=== PATIENT | male | born 1945 | race Caucasian/White ===

== ENCOUNTER 2018-01-16 15:01 | Inpatient (IN) | payer MEDICARE, OTHER ==
[~2018-01-16] VITALS: Ht 177.8 cm; Wt 125.8 kg
[~2018-01-16 15:01] MED LIST: ACEBUTOLOL HCL200 MG PO; BACTRIM DS TAB1 EACH PO; CELEBREX100 MG PO; GLIMEPIRIDE4 MG PO; GLYBURIDE5 MG PO; HYDROCODON-ACE1 EA11 PO; LOSARTAN POTAS100 MG PO; LOVASTATIN40 MG PO; METFORMIN HCL500 M1 PO; PERCOCET 5-3251 EACH PO
[2018-01-16] MEDS ORDERED: BUPROPION HCL150 M2 PO (15:29)
[2018-01-16] MEDS ORDERED: PIOGLITAZONE HC15 MG PO (15:30)
[2018-01-16] MEDS ORDERED: ACEBUTOLOL HCL200 MG PO (15:33)
[2018-01-16] MEDS ORDERED: COL-RITE100 MG PO (15:36)
[2018-01-16] MEDS ORDERED: MUCINEX600 MG PO (15:36)
--- NOTE | 2018-01-16 18:24 | NUR ---
PT IV SITE INTACT, NO REDNESS OR SWELLING NOTED, PT DENIES PAIN AT SITE, FLUIDS INFUSING EASILY. PT DENIES PAIN, SOB, AND NAUSEA.
--- NOTE | 2018-01-16 18:45 | NUR ---
TOOK 1/2 OF DINNER.
--- NOTE | 2018-01-16 19:40 | NUR ---
FORTH BOLUS OF NS INFUSED. HOB ELEVATED.
--- NOTE | 2018-01-16 19:45 | NUR ---
SHIFT REPORT RECEIVED FROM JAMAICA GARCIA. PT HAS MULTIPLE VISITORS IN ROOM AT THIS TIME. 2L O2 VIA NC IN PLACE. JARA PATENT, TEA COLORED URINE. RADHA PLACED NEW 20G IV IN LEFT AC. CALL LIGHT WITHIN REACH, WILL CONTINUE TO MONITOR.
--- NOTE | 2018-01-16 19:48 | NUR ---
REPORT TO NEXT SHIFT.
--- NOTE | 2018-01-16 20:50 | NUR ---
ASSESSMENT COMPLETED. PT IS ALERT, FAMILY MEMBERS AT BEDSIDE. ORIENTED TO SELF, YEAR, CITY, DISORIENTED TO MONTH AND SURROUNDINGS. REPORTS 3/10 HEADACHE PAIN, 500MG PO TYLENOL GIVEN. LUNGS DIMINISHED, 2L O2 VIA NC IN PLACE. HR REGULAR. BOWEL TONE ACTIVE, DENIES NAUSEA. ABDOMEN IS OBESE, NONTENDER. SKIN INTACT, SCABS PRESENT TO FOREHEAD/SCALP. SKIN TO LEGS APPEARS TIGHT, NO PITTING PRESENT. CB, 8 UNITS SLIDING SCALE ADMINISTERED. IV'S PATENT, IVF INFUSING WNL. JARA IN PLACE, TEA-COLORED URING NOTED IN BAG. PT'S SON SHANEKA SPENDING NIGHT. REQUESTS DENIED AT THIS TIME, WILL CONTINUE TO MONITOR.
--- NOTE | 2018-01-16 21:30 | NUR ---
DR. JONAS CALLED TO CHECK IN ON PT'S, UPDATED HIM ON THE FOLLOWIN. PT'S FAMILY BROUGHT IN A POLST FORM (THOUGH PT'S NAME AND ARE NOT ON IT) THAT STATES PT IS TO BE FULL CODE, ORDERS RECEIVED TO CHANGE CODE STATUS ORDER. 2. PT AND PT'S SON REPORT THAT PT IS ALLERGIC TO BLOOD THINNERS BECAUSE THEY HAVE GIVEN HIM BLOOD CLOTS IN THE PAST, NEW ORDERS RECEIVED TO D/C LOVENOX (WHICH WAS HELD AT 2100) AND TO ORDER SCD'S. 3. PT'S URINE OUTPUT AT 2100 WAS ONLY 30ML. ORDERS RECEIVED TO INCREASE MAINTANENCE FLUID RATE TO 200ML/HR AND TO ADMINISTER 500ML LR BOLUS.
--- NOTE | 2018-01-16 23:43 | NUR ---
WENT IN TO MEASURE URINE OUTPUT AT 2300 AND DISCOVERED THAT THERE HAD BEEN 0, DESPITE THE 500ML BOLUS. CHECKED THE JARA AND FOUND THAT IT HAD BEEN LEAKING, A RATHER LARGE AMOUNT OF URINE NOTED ON GOWN AND CHUX PAD. ADDED AN EXTRA 5ML NS TO BALLOON, BUT STILL LEAKED. CLEANED MEATUS WITH IODINE, EMPTIED BALLOON AND INSERTED JARA FURTHER AND REINFLATED BALLOON WIH 15ML NS, BUT STILL LEAKED. JARA THEN D/C'D, LARGE BLOOD CLOT NOTED ON TIP OF JARA. NEW 18G JARA PLACED USING UROJECT AND MAINTAINING STERILE TECHNIQUE. URINE RETURNED APPEARED BLOOD TINGED WITH 3-4 PEA-SIZED CLOTS NOTED. JARA FLUSHED WITH 10ML NS. 100ML BLOOD-TINGED URINE EMPTIED (INCLUDING 10 ML FLUSH). NO LEAKING NOTED, WILL CONTINUE TO MONITOR.
--- NOTE | 2018-01-17 00:20 | NUR ---
ASSESSMENT COMPLETED, NO CHANGES FROM PREVIOUS ASSESSMENT. JARA FLUSHED WITH 10ML NS, REMAINS PATENT, NO MORE BLOOD CLOTS NOTED, URINE STILL APPEARS BLOOD-TINGED IN COLOR. IVF INFUSING WNL. WILL ALLOW FOR REST AND CONTINUE TO MONITOR. SON REMAINS AT BEDSIDE.
--- NOTE | 2018-01-17 01:29 | NUR ---
CHECKED ON PT, HR HAD INCREASED TO 97-100 AND RR INCREASED TO 35. PT FOUND TO BE SHAKY AND NAUSEATED. ZOFRAN ADMINISTERED. PT FOUND TO HAVE TEMP OF 103.0, ATTEMPTED TO GIVE PO TYLENOL, BUT PT WAS UNABLE TO FOLLOW DIRECTIONS TO SWALLOW. NIO ENTERED FOR TYLENOL SUPPOSITORY. PT FOUND TO HAVE HAD LARGE, SOFT BM. SHARDA-CARE, NEW DRAW SHEET, AND NEW CHUX PROVIDED AND TYLENOL SUPPOSITORY PLACED. PT TOLERATED WELL, THOUGH HE STILL APPEARS DROWSY. ICE PACKS PLACED IN GROIN AND UNDER AN ARMPIT. CALLED DR. JONAS WHO DID NOT ANSWER, WILL TRY AGAIN IN A FEW MINUTES.
--- NOTE | 2018-01-17 02:00 | NUR ---
ICE PACKS ROTATED FROM LEFT SIDE OF GROIN AND LEFT ARMPIT TO RIGHT SIDE.
--- NOTE | 2018-01-17 02:30 | NUR ---
RECHECKED TEMP: 98.3 TEMPORALLY. ICE PACKS REMOVED. WILL CONTINUE TO MONITOR.
--- NOTE | 2018-01-17 04:16 | NUR ---
ASSESSMENT COMPLETED. PT SLEEPING, WOKE BRIEFLY WHILE I WAS AUSCULTATING LUNGS. LUNGS REMAIN DIM THROUGHOUT, 3L O2 VIA NC IN PLACE. HR REGULAR. JARA PATENT, CONCENTRATED URINE. NO OTHER CHANGES FROM PREVIOUS ASSESSMENT. WILL CONTINUE TO MONITOR.
--- NOTE | 2018-01-17 06:21 | NUR ---
PT REMAINS AFEBRILE. JARA REMAINS PATENT. PT DENIES NEEDS, SON REMAINS AT BEDSIDE.
[2018-01-17] MEDS ORDERED: ACEBUTOLOL HCL200 MG PO (07:30)
[2018-01-17] MEDS ORDERED: METFORMIN HCL500 M2 PO (07:33)
--- NOTE | 2018-01-17 10:11 | NUR ---
PATIENT HELPED BACK TO BED WITH HIS SON AND THE TRANSFER DRIVER. PT TOLERATED SITTING UP IN CHAIR WELL FOR ABOUT 1 1/2 HRS. PT HAS BEEN MAKING 36-45 ML/HR OF URINE, AND OUR GOAL/HR IS 65 ML. PT GIVEN NORCO FOR 10/10 PAIN IN HIS SPINE. PT NOW RESTING WELL. PT HAS HAD SOME BLEEDING AROUND JARA CATHETER SITE WHICH HAS BEEN CLEANED X2 THIS AM. IVF CONTINUE AT 200 ML/HR. HEART RATE CURRENTLY IN THE 70s. PT ON ROOM AIR WITH SP02 96%. PT STATES, "I DON'T REMEMBER LAST NIGHT." PT REMINDED OF THE EVENTS AND REASON FOR HIS HOSPITILAZATION. CONTINUE TO MONITOR.
--- NOTE | 2018-01-17 11:40 | NUR ---
PATIENT HAS BEEN SLEEPING IN BED AND STATES HIS PAIN IS BETTER. PT DOZES OFF RATHER QUICKLY AT THIS TIME. LUNCH ORDERED FOR PATIENT. HEART RATE IN THE 60-70s, SINUS RHYTHM WITH A BBB. LAST BP 121/57. URINE OUTPUT SEEMS TO BE PICKING UP AT THIS TIME, BUT CONTINUING TO MONITOR Q HR.
--- NOTE | 2018-01-17 12:34 | NUR ---
PATIENT BOOSTED IN BED WITH CEILING LIFT AND GREEN SHIFT. PT NOW EATING HIS LUNCH. CBG 407 AND 12 UNITS OF INSULIN GIVEN. DR. JONAS NOTIFIED. PT TO BE SWITCHED TO A HIGH DOSE INSULIN SCALE. PATIENT NOW EATING LUNCH WITH HIS AND SON AT BEDSIDE.
--- NOTE | 2018-01-17 13:34 | NUR ---
PATIENT GIVEN PAIN PILL FOR 9/10 BACK PAIN. PT STATES HIS PAIN NEVER REALLY GETS BETTER. PT STATES HE TAKES 6 NORCOS PER DAY. SP02 CURRENTLY 99% ON ROOM AIR.
--- NOTE | 2018-01-17 15:12 | NUR ---
PATIENT HELPED UP TO CHAIR AGAIN AT THIS TIME AND GIVEN BED BATH. PT TOLERATED WELL. JARA CATHETER CARE PERFORMED AGAIN DUE TO BLOOD ACCUMULATION AROUND SITE. PT'S URINE OUTPUT REMAINS ADEQUATE NOW, WITH THE LAST HOUR BEING 85 ML. HEART RATE IN THE 60-70s. PT IS A STANDY BY ASSIST ONCE HE IS UP, BUT NEEDS HELP TO SIT UP AT EDGE OF BED. LAST BP 127/51. PT REMAINS ON ROOM AIR. CONTINUE TO MONITOR. STRAWBERRY GLUCERNA PROVIDED FOR PATIENT.
--- NOTE | 2018-01-17 16:17 | NUR ---
PATIENT HELPED BACK TO BED WITH HIS SON, SHANEKA. PT NOW RECEIVING IV ROCEPHIN AND DINNER ORDER PLACED. CONTINUE TO MONITOR.
--- NOTE | 2018-01-17 17:49 | NUR ---
PATIENT NOTED TO HAVE SOME BLOOD CLOTS PASSING THROUGH HIS JARA. OVERALL HIS URINE DOES SEEM TO BE COMMUNITY ADVOCATE COLOR THAN EARLIER TODAY, BUT WILL CONTINUE TO MONITOR CLOSELY. PT MAY NEED JARA FLUSHED IF URINE DECREASES. PT HAS FAMILY IN ROOM VISITING.
--- NOTE | 2018-01-17 19:30 | NUR ---
SHIFT REPORT RECEIVED FROM JAMAICA SHERMAN. PT IS CURRENTLY RESTING IN BED. SON HAS BEEN AT BEDSIDE, IS HEADING HOME FOR ABOUT AN HOUR AND WILL BE BACK. IVF INFUSING WNL. ESTEFANI PATENT. PT ON RA.
--- NOTE | 2018-01-17 21:00 | NUR ---
ASSESSMENT COMPLETED. PT APPEARS DROWSY, IS HAVING DIFFICULTY ANSWERING QUESTIONS. FOUND TO HAVE TEMP OF 101.0. PT REPORTS BACK PAIN, 1 TAB NORCO GIVEN AT THIS TIME. ICE PACKS PLACED IN RIGHT GROIN AND UNDER RIGHT ARMPIT, WILL CHECK TEMP IN AN HOUR AND DECIDE IF HE REQUIRES ADDITIONAL TYLENOL FOR TEMP. DISORIENTED TO ALL AT THIS TIME. LUNGS CLEAR, RA. HR REGULAR. BOWEL TONES ACTIVE, ABDOMEN OBESE, SOFT, NON-TENDER. IV PATENT, IVF INFUSING WNL. SKIN TO BLE APPEARS TIGHT, MORE SO IN RLE, SCD'S IN PLACE. JARA PATENT, UO QS THIS HOUR, FEW SMALL BLOOD CLOTS NOTED IN BAG. CB, 9 UNITS SLIDING SCALE AND 10 UNITS LEVEMIR ADMINSTERED. SON BACK AT BEDSIDE. WILL CONTINUE TO MONITOR.
--- NOTE | 2018-01-17 22:00 | NUR ---
RECHECKED TEMP: 99.9, 500MG PO TYLENOL ADMINISTERED. ICE PACKS ROTATED SIDES. IV PATENT, INFUSING WNL. ESTEFANI PATENT, UP QS THIS HOUR. WILL CONTINUE TO MONITOR.
--- NOTE | 2018-01-17 23:00 | NUR ---
TEMP REMAINS AT 99.9 ICE PACKS ROTATED AND COOL CLOTH PLACED ON FOREHEAD. UO QS AT THIS TIME, BLOOD CLOT NOTED IN TUBING. WILL CONTINUE TO MONITOR.
--- NOTE | 2018-01-18 00:14 | NUR ---
DR. BARBOSA HAD CALLED TO CHECK IN ON PT'S, INFORMED HER THAT UO THIS LAST HOUR WAS ONLY 35, SHE STATES THIS IS ACCEPTABLE BASED ON HIS CREATININE LEVEL. NO NEW ORDERS RECEIVED AT THIS TIME. TEMP: 97.7.
--- NOTE | 2018-01-18 00:22 | NUR ---
PT SLEEPING, NO APPARENT DISTRESS. RESPIRATIONS EVEN AND UNLABORED, RR:19, SPO2: 95% ON 2L O2 VIA NC. HR: 72. JARA PATENT, CLOTS NOTED IN TUBING. WILL ALLOW FOR REST AND CONTINUE TO MONITOR.
--- NOTE | 2018-01-18 02:00 | NUR ---
PT APPEARS TO BE SLEEPING AT THIS TIME, NO APPARENT DISTRESS. RR:23, SPO2:96% ON 2L O2 VIA NC. HR:73. RESPIRATIONS ARE EVEN AND UNLABORED. IVF INFUSING WNL. JARA REMAINS PATENT, NO CLOTS NOTED IN TUBING AT THIS TIME. REMAINS AFEBRILE. WILL ALLOW FOR REST AND CONTINUE TO MONITOR.
--- NOTE | 2018-01-18 04:06 | NUR ---
PT SLEEPING, NO APPARENT DISTRESS. LUNGS REMAIN CLEAR, 2L O2 VIA NC. RESPIRATIONS EVEN AND UNLABORED, RR:23, SPO2:98%. HR:77. JARA PATENT, COUPLE BLOOD CLOTS NOTED IN TUBING. IV PATENT, INFUSING WNL. WILL ALLOW FOR REST AND CONTINUE TO MONITOR.
--- NOTE | 2018-01-18 06:50 | NUR ---
PT'S SON STATES THAT PT REPORTED FEELING HOT. ORAL TEMP: 98.5 AT THIS TIME. COOL CLOTH PLACED ON FOREHEAD, WILL CONTINUE TO MONITOR.
--- NOTE | 2018-01-18 08:08 | NUR ---
PATIENT HELPED UP TO CHAIR BY HIS SON, SHANEKA, WHO IS VERY ATTENTIVE TO PATIENT. BREAKFAST ORDERED BY HIS SON FOR PATIENT WELL. PT GIVEN 10 UNITS LEVEMIR AND 5 UNITS NOVOLOG FOR A BG 200 THIS AM. TEMP THIS AM 99.4. DR. BARBOSA IN TO SEE PATIENT. HEART RATE REMAINS IN THE 70-80s. CRACKLES AUSCULTATED IN BOTH LOWER LUNG LOBES POSTERIORLY. PT GIVEN IS AND TAUGHT HOW TO USE IT AND ENCOURAGED TO TAKE DEEP BREATHS. IVF TURNED DOWN TO 100 ML/HR PER DR. BARBOSA ORDER. URINE OUTPUT AT 0800 WAS 110 ML, DARK COLORED URINE. PT NOW EATING BREAKFAST. CONTINUE TO MONITOR.
--- NOTE | 2018-01-18 08:44 | NUR ---
PATIENT'S SON SHANEKA WAS HELPING PATIENT BACK TO BED BECAUSE PATIENT STATED HE COULD NOT WAIT AND THE CALL LIGHT WAS NOT USED. THIS RN THEN HEARD THE PATIENT'S SON CALLING FOR HIS RN BY NAME, AND WENT IN TO SEE PATIENT. PT'S SON HAD HIM ALMOST ON THE BED BUT STATED, "HE'S ABOUT TO FALL." HELPED PATIENT BACK INTO BED WITHOUT INCIDENT. PATIENT HOWEVER DID NOT APPEAR TO BE DOING WELL, AND SOME MOTTLING WAS NOTED TO HIS ARMS AND HIS FACE AND NECK. PATIENT'S BLOOD PRESSURE ONCE IN BED 159/68. HEART RATE REMAINED IN THE 70s DURING THIS WHOLE TIME. SP02 IS 96% ON ROOM AIR, BUT 02 ADDED BACK ON PATIENT AT 2 L. RR 24. TEMPERATURE 98.4 ORAL. PT STARTED TO LOOK BETTER AND HAD BETTER SKIN COLOR IN HIS FACE AND NECK AFTER HE WAS LYING DOWN. CONTINUE TO MONITOR.
--- NOTE | 2018-01-18 09:28 | NUR ---
PATIENT SLEEPING AT THIS TIME. PT'S SON REMAINS IN ROOM. RR EVEN AND UNLABORED. CONTINUE TO MONITOR.
--- NOTE | 2018-01-18 11:31 | NUR ---
PATIENT CONTINUES TO REST AT THIS TIME AND IS OVERALL FAIRLY DROWSY. HEART RATE REMAINS IN THE 60-70s. SP02 IS 97% ON 2 L NC. PT'S IN ROOM WITH HIM. URINE OUTPUT APPEARS DARKER - CONTINUE TO MONITOR. HOLDING OFF ON TRANSFERRING PATIENT TO MED/SURG AT THIS TIME UNTIL LATER THIS AFTERNOON. CONTINUE TO MONITOR.
--- NOTE | 2018-01-18 11:41 | NUR ---
PATIENT DENIES WANTING ANY FOOD AT THIS TIME FOR LUNCH. PT IS VERY TIRED OVERALL. CONTINUE TO MONITOR URINE OUTPUT CLOSELY.
--- NOTE | 2018-01-18 12:27 | NUR ---
PATIENT WILL AWAKEN WITH PROMPTING, BUT OVERALL IS MUCH MORE DROWSY TODAY COMPARED TO YESTERDAY. PT IS ALSO MORE DISORIENTED. PT CAN STATE THAT HE IS IN A HOSPITAL, BUT UNAWARE OF THE REASON FOR BEING IN ONE, THE MONTH, OR THE YEAR. PT RE-ORIENTED. PT'S REMAINS IN ROOM. END TITAL C02 PLACED ON PATIENT TO MONITOR THIS AT THIS TIME AND CURRENTLY ETC02 IS 48-49. PT DOES NOT APPEAR TO BE WORKING HARD TO BREATH, AND BREATHS ARE ADEQUATE. PT TURNED TO RIGHT SIDE. PT DENYING PAIN AT THIS TIME, WHICH NORMALLY H E REQUIRES 6 NORCO TABS PER DAY. PT GIVEN 5 UNITS OF NOVOLOG FOR A CBG OF 221. PT STILL STATES HE IS NOT HUNGRY. RR 18-19. CONTINUE TO MONITOR.
--- NOTE | 2018-01-18 12:37 | NUR ---
DR. BARBOSA UPDATED ON PT AT THIS TIME. OXYGEN TURNED OFF AND WILL BE MONITORED. CURRENTLY PATIENT IS 97-98% ON ROOM AIR. CONTINUE TO MONITOR END TITAL AND RR PATTERN, DEPTH AND QUALITY.
--- NOTE | 2018-01-18 13:29 | NUR ---
DR. BARBOSA UPDATED AGAIN ON PATIENT. ORDER REC'D TO DRAW ABG. RT NOTIFIED AND ABG DRAWN AT 1325. PT TOLERATED WELL. PT NOTED TO DESATURATE TO THE MID 80s ON ROOM AIR. PT STILL FAIRLY DROWSY OVERALL. PT'S SON AND IN ROOM. CONTINUE TO MONITOR CLOSELY. WARM BLANKET PROVIDED. URINE OUTPUT STARTING TO APPEAR SOMEWHAT SENIOR MARKETING COORDINATOR IN COLOR.
--- NOTE | 2018-01-18 13:53 | NUR ---
ENTERED PT RM, YENNIFER AND SON SHANEKA IN RM. PT OPENED HIS EYES WHEN I SPOKE TO HIM, ANSWERED MY QUESTIONS. PT STATED THAT HE FEELS WORSE TODAY THAN YESTERDAY. HE MENTIONED HIS PAIN AT 10, I TOLD JAMAICA SHERMAN RE HIS PAIN RATE. PT THEN DRIFTED OFF. HAD GOOD DISCUSSION WITH FAMILY, THANKED ME FOR COMING BY. I EXTENDED A BLESSING, WILL FOLLOW NEEDED
--- NOTE | 2018-01-18 14:10 | NUR ---
ABG RESULTS SHOWN TO DR. BARBOSA. ORDER REC'D TO PLACE PATIENT ON CPAP/BIPAP PER RT. FAMILY IN ROOM AND UPDATED. CONTINUE TO MONITOR.
--- NOTE | 2018-01-18 15:00 | NUR ---
PATIENT NOW ON CPAP OF 14 ON ROOM AIR. SP02 CURRENTLY IS 94%. PT GIVEN A BED BATH AND WAS A LITTLE MORE ALERT AND INTERACTIVE WITH BATH, BUT OVERALL STILL SOMNOLENT. PATIENT'S BUTTOCKS AND COCCYX AREA RED, BUT ALL BLANCHABLE. PT TURNED TO LEFT SIDE, PATIENT TENDS TO LEAN TOWARDS THE RIGHT MORE. PT NOTED TO HAVE REDENNED AREA IN GROIN AREA WELL. SCROTUM AND PENIS EDEMATOUS. CONTINUE TO MONITOR CLOSELY. PT TOLERATING CPAP THUS FAR.
--- NOTE | 2018-01-18 16:27 | NUR ---
PATIENT TAKEN OFF BIPAP AT THIS TIME. PT'S GRANDSON IN ROOM AND PATIENT MORE INTERACTIVE WITH HIM AT THIS TIME. PT ASKED IF HE KNEW IT WAS IN THE AFTERNOON, AND HE RESPONDED, "NO, I HAD NO IDEA." PATIENT THEN ASKED, "DOES TODAY SEEM LIKE A BLUR TO YOU?" TO WHICH HE STATES, "YEAH IT KIND OF DOES." CONTINUE TO MONITOR.
--- NOTE | 2018-01-18 16:48 | NUR ---
PATIENT DENIES BEING HUNGRY AT THIS TIME, BUT AGREES TO DRINK A STRAWBERRY GLUCERNA. PT MORE ALERT THAN PREVIOUSLY TODAY.
--- NOTE | 2018-01-18 18:27 | NUR ---
PATIENT PLACED BACK ON CPAP AT THIS TIME AFTER ASSESSING PATIENT. PT CONTINUES TO HAVE CRACKLES IN BASES OF LUNGS. PT DOES NOT TAKE DEEP BREATHS AND EVEN WITH IS, CAN ONLY PRODUCE 250 ML ON THE IS. PT HESITATE TO GO BACK ON CPAP, BUT EXPLAINED TO PATIENT WHY THIS IS IMPORTANT FOR HIM. PT CONTINUES TO PASS SOME BLOOD CLOT LIKE MATERIAL IN JARA TUBING. PT'S REMAINS IN ROOM.
--- NOTE | 2018-01-18 20:13 | NUR ---
OFF CPAP, AT SOME SOUP AND A LITTLE GLUCERNA. WILL AWAKEN AND FOLLOW SOME COMMANDS BUT FALLS BACK TO SLEEP QUICKLY. WILL LEAVE CPAP FOR FOR NOW BUT WILL REPLACE LATER.
--- NOTE | 2018-01-18 20:52 | NUR ---
GIVEN HS MEDS. GIVEN 500MG TYLENOL FOR TEMP. PLACED BACK ON CPAP.
--- NOTE | 2018-01-18 21:36 | NUR ---
PT TOOK CPAP OFF, FELT LIKE HE COULDN'T BREATH. HAD NOTED EARLIER THAT SATS HAD Oct BFORE CPAP PUT BACK ON. [address] IS DIAPHORETIC. T 99.2. SON IN ROOM. FEW CLOTS NOTED IN JARA TUBING.
--- NOTE | 2018-01-19 00:15 | NUR ---
HAD BEEN SLEEPING. AWAKENS TO VOICE AND STATES IS TIRED. DOES NOT STAY AWAKE. IS DIAPHORETIC AND AFREBRILE NOW. CPAP BACK ON.
--- NOTE | 2018-01-19 00:33 | NUR ---
PT REPOSITIONED USING SLING, HIPS FLOATED. DURING THIS PT SLEPT THROUGH MUCH BUT DID AWAKEN TO ASK WHAT HE WAS DOING HERE, THEN BACK TO SLEEP. CPAP IN PLACE.
--- NOTE | 2018-01-19 02:34 | NUR ---
PT TOOK CPAP OFF AT 0130. . STATES FEELS LIKE THE MASK HAD PUT PRESSURE ON MOUTH WHEN DENTURES WERE IN AND FEELS LIKE HIS GUMS ARE BRUISED. HAD REMOVED DENTURES ABOUT 0030. HAS BEEN SLEEPING ON RA. SATS 90-95%.
--- NOTE | 2018-01-19 04:27 | NUR ---
SLEEPING OFF AND ON. DID NOTE SLEEP APNEA WHEN IN DEEP SLEEP. IS AWAKE, MORE ALERT THAN BEFORE, MORE INTERACTIVE. DENIES PAIN, THIRST OR HUNGER.
--- NOTE | 2018-01-19 06:44 | NUR ---
MORE AWAKE THIS AM. AFFECT STILL FLAT.
--- NOTE | 2018-01-19 08:50 | NUR ---
PT IV SITE IN LEFT HAND DC'D PER ROUTINE IV ROTATION. PT C/O 07/02 NECK/BACK PAIN, 1 TAB NORCO GIVEN. PT AND SON AT THE BED SIDE. PT LOC HAS INCREASED SINCE THIS PRIOR DAY, BACK TO BASELINE. VITALS STABLE. PT ABLE TO EAT 75% HIS BREAKFAST. IV SITE IN LEFT AC INTACT, FLUIDS INFUSING EASILY, NO REDNESS OR SWELLING NOTED.
--- NOTE | 2018-01-19 12:30 | NUR ---
IV SITE INTACT, NO REDNESS OR SWELLING NOTED, IV FLUIDS INFUSING EASILY, PT DENEIS PAIN AT THE SITE. PT DENIES NAUSEA AND SOB. C/O 9/10 BACK/NECK PAIN 1 TAB PO NORCO GIVEN. PT DENIES DESIRE FOR LUNCH. LEFT BEDSIDE TO GO TO WORK, SON BACK AT BEDSIDE. PT VITALS WNL AT THIS TIME.
--- NOTE | 2018-01-19 13:18 | NUR ---
PT RESTING IN BED, AWARE OF MY PRESENCE AND WELCOMED ME IN. HE REACHED OUT AND SHOOK MY HAND. FEELING BETTER TODAY, PAIN IS CHRONIC-SOMETHING HE HAS JUST LEARNED TO LIVE WITH. PT REQUESTED PRAYER, WILL FOLLOW NEEDED. HIS DID COME IN JUST I WAS LEAVING TALKING ON PHONE
--- NOTE | 2018-01-19 14:02 | NUR ---
PT ALERT AND ORIENTED X4, FINISHED 100% OF LUNCH, USING INCENTIVE SPIROMETER.
--- NOTE | 2018-01-19 15:45 | NUR ---
PT TRANSFERED TO MED/SURG ROOM 113. ALL PT BELONGINGS WENT WITH PT. FULL REPORT GIVEN TO JAMAICA BOLES.
--- NOTE | 2018-01-19 15:53 | NUR ---
PT TRANSFERED FROM CCU TO ROOM 113 VIA BED, ACCOMPANIED BY JAMAICA RADER AND THIS RN. REPORT RECIEVED FROM JAMAICA RADER PRIOR TO TRANSFER.
--- NOTE | 2018-01-19 16:26 | NUR ---
PT UP TO RECLINER WITH STAND PIVOT TRANSFER USING FWW, GAIT BELT, AND 3 PERSON ASSIST. PT TOLERATED WELL.
--- NOTE | 2018-01-19 16:48 | NUR ---
PT SITTING UP IN RECLINER. GAVE NOVOLOG 5 UNITS SQ PER SLIDING SCALE INSULIN ORDERS. PT DENIED NEEDS. PERSONAL SUPPLIES AND CALL BUTTON IN REACH.
--- NOTE | 2018-01-19 17:22 | NUR ---
PT TRANSFERED FROM CCU TO ROOM 113 AT APROXIMATELY 1545. PT IN BED, TRANSFERED TO RECLINER WITH 3 PERSON ASSIST WITH FWW, PT TOLERATED WELL. PT HAS GENERALIZED EDEMA TO EXTREMITITIES X 4, 1 + EDEMA TO SACRUM, SCROTUM. JARA CATHETER INTACT, QUANTITY SUFFICIENT URINE OUTPUT, YELLOW WITH OCCASIONAL CLOTS NOTED. PT SHORT OF BREATH WITH EXERTION. ON RA, LUNGS DIMINISHED. PT HAS CHEST PORT, REPORTS THAT IT WAS PLACED MORE THAN 20 YEARS AGO, THIS IS NOT ACCESSED. PT HAS LR INFUSING AT 100 CC/HR. PT IS A DAILY WEIGHT. ON RA, LUNGS DIMINISHED. PER CCU RN REPORT, PT WORE 2L O2 VIA NC AT [facility], OR CPAP. PT C/O CHRONIC BACK PAIN, RECIEVED NORCO 7.5/325 MG 1 TAB PO PRN.
--- NOTE | 2018-01-19 18:54 | NUR ---
PT IN BED, HOB ELEVATED. RATED PAIN TO BACK 6-7/10. PT REPORTS THAT THE LOWEST HIS PAIN GETS, EVER, IS 6/10. DENIED NEEDS. SON AT BEDSIDE. PERSONAL SUPPLIES AND CALL BUTTON IN REACH.
--- NOTE | 2018-01-19 20:03 | NUR ---
RECEIVED REPORT FROM DAY SHIFT RN. PATIENT IS RESTING IN BED WITH FAMILY AT THE BEDSIDE. NO NEEDS NOTED. CALL LIGHT IN REACH.
--- NOTE | 2018-01-19 21:10 | NUR ---
PATIENT ASSESMENT COMPLETED. PATIENTS EVENING MEDICATIONS GIVEN PER ORDER. PATIENT RATES PAIN AT A 10/10. PATIENT STATED "MY PAIN IS ALWAYS 10/10" PATIENT GIVEN PRN PAIN MEDICATION PER ORDER. PATIENT REPOSITIONED IN BED. VITALS TAKEN AND RECORDED. PATIENTS JARA EMPTIED NO CLOTS NOTED. PATIENT DENIES ANY SOB. PATIENT IS REFUSING TO WEAR CPAP. PATIENT STATED "I DONT WEAR IT AT HOME" PATIENT EDUCATED ON THE BENEFIT OF WEARING THE CPAP. PATIENT CONTINUES TO REFUSE. NO FURTHER NEEDS NOTED. CALL LIGHT IN REACH. SON IN THE ROOM AND IS STAYING THE NIGHT. LINEN PROVIDED FOR SON.
--- NOTE | 2018-01-19 23:42 | NUR ---
PATIENT IS RESTING IN BED WITH EYES CLOSED. BREATHING IS EVEN AND UNLABORED, RR 17. CALL LIGHT IN REACH. SON IS ASLEEP ON THE COUCH.
--- NOTE | 2018-01-20 01:02 | NUR ---
PATIENT IS RESTING IN BED WITH EYESCLOSED, RR 17. CALL LIGHT IN REACH.
--- NOTE | 2018-01-20 02:22 | NUR ---
PATIENT REPOSITIONED IN BED. PATIENT DENIES ANY NEEDS AT THIS TIME. CALL LIGHT IN REACH. SON ASLEEP ON COUCH.
--- NOTE | 2018-01-20 04:09 | NUR ---
PATIENT IS RESTING IN BED WITH EYES CLOSED. BREATHING IS EVEN AND UNLABORED, RR 18. CALL LIGHT IN REACH. SON ASLEEP ON THE COUCH.
--- NOTE | 2018-01-20 05:12 | NUR ---
PATIENT RESTED WELL THROUGHOUT THE SHIFT. PATIENT IS ON A ADA DIET, NO NAUSEA NOTED. PATIENT HAS CHRONIC PAIN FOR WHICH HE RECEIVED PRN PAIN MEDICATION. PATIENT IS A 2-3P PIVOT TO BSC OR CHAIR W/FWW. PATEINT HAS A JARA IN PLACE, OUPUT IS QS, URINE IS A DARKER YELLOW IN PLACE, AND NO CLOTS NOTED ON THIS SHIFT. PATIENT REFUSED CPAP OR OXYGEN LAST NIGHT. PATIENT REPOSITIONED NEEDED. PATIENT SON REMAINED IN ROOM. PATEINT IS AAOX3, AND USES CALL LIGHT APPROPRIATELY.
--- NOTE | 2018-01-20 06:06 | NUR ---
PATIENTS MORNING MEDICATIONS GIVEN PER ORDER. PATIENT GIVEN PRN PAIN MEDICAITON FOR 10/10 PAIN IN HIS BACK. PATIENT STATED "THIS IS ALWAYS A 10/10" PATIENT ASSISTED A 2PA W/FWW. PATIENT DID VERY WELL WITH ACITIVTY. PATIENT IS NOW IN RECLINER RESTING. PATIENT DENIES ANY FURTHER NEEDS. CALL LIGHT IN REACH AND SON AT THE BEDSIDE.
--- NOTE | 2018-01-20 07:25 | NUR ---
PT SITTING UP IN RECLINER, SON AT SIDE. RECIEVED BEDSIDE REPORT FROM JAMAICA LATHAM. PERSONAL SUPPLIES AND CALL BUTTON IN REACH.
--- NOTE | 2018-01-20 07:52 | NUR ---
PT SITTING UP IN RECLINER. BG CHECKED, 194. PERSONAL SUPPLIES IN REACH, CALL BUTTON IN REACH.
--- NOTE | 2018-01-20 08:15 | NUR ---
DR. BARBOSA IN TO SEE PT. DISCUSSED PLAN OF CARE. PT STATED THAT HE FEELS READY TO GO HOME, DR. BARBOSA DISCUSSED NEED FOR FURTHER IV TREATMENT AT THIS TIME, AND NEED TO REMAIN IN HOSPITAL FOR LONGER FOR PHYSICAL THERAPY POTENTIALLY.
--- NOTE | 2018-01-20 08:29 | NUR ---
JARA CATHETER REMOVED, PT TOLERATED WELL. HAD 625 CC URINE IN CATHETER BAG.
--- NOTE | 2018-01-20 09:39 | NUR ---
PT TRANSFERED FROM RECLINER TO BED WITH 3 PERSON ASSIST. IS NOW SITTING UP IN BED. PERSONAL SUPPLIES IN REACH, IS CALL LIGHT.
--- NOTE | 2018-01-20 09:43 | NUR ---
3 PERSON ASSIST FROM CHAIR TO BED. LISA LEFT SHARDA AREA IRRITATED. BEDBATH BY THIS [employer] MANAGER AND RN. CLEAN GOWN AND SOCKS. FRESH ICE WATER CALL LIGHT IN REACH. NO OTHER NEEDS.
--- NOTE | 2018-01-20 11:09 | NUR ---
2 person assist in gown and brief change. Bed became off track in the process, sherrie Cordero was able to fix bed. rn in room for b/s check. call light in reach.
--- NOTE | 2018-01-20 11:14 | NUR ---
PT IN BED, HOB ELEVATED. DENIED NEEDS. PERSONAL SUPPLIES AND CALL BUTTON IN REACH. BG CHECKED, 218.
--- NOTE | 2018-01-20 13:17 | NUR ---
PT RESTING IN BED, ALERT AND ORIENTED. YENNIFER PRESENT. PT SEEMS TO HAVE ACCEPTING ATTITUDE OF HIS CONDITION, TRYING TO HAVE SENSE OF HUMOR THROUGH IT ALL. DID MENTION THAT HE FELT A NEED TO REST, TURNED OVERHEAD LIGHT OFF. WILL FOLLOW NEEDED
[2018-01-20] MEDS ORDERED: KEFLEX500 MG PO (13:33)
--- NOTE | 2018-01-20 13:50 | NUR ---
PT IN BED, SON AT BEDSIDE. PT DENIED NEEDS. STATED THAT HE IS DISCHARGING TO HOME, PER DR. BARBOSA.
--- NOTE | 2018-01-20 14:28 | NUR ---
2 PERSON ASSIST WITH RN IN CHANGING CLOTHES FROM GOWN TO PERSONAL CLOTHES. DISCHARGE VITALS DONE, WAITING ON VISIT FROM PHARMACY. SON IN ROOM, VERY ATTENTIVE. CALL LIGHT IN REACH.
--- NOTE | 2018-01-20 14:58 | NUR ---
PT'S DISCHARGE VS WERE OBTAINED BY NEELIMA LOPEZ. BP WAS 187/72. PT HAD EXERTED HIMSELF, GETTING ATTENDS CHANGED, CHANGING INTO HIS STREET CLOTHING, AND TRANSFERING TO / PRIOR TO VS BEING OBTAINED. NOTIFIED DR. BARBOSA OF ABOVE NOTED AT 1455.
== END 2018-01-20 14:40 | disposition home or self-care (01) | DRG 871 ==
LOC: ED 15:01 → CCU 17:14 → MS 01-19 15:35
PROVIDERS: ADMIT Internal Medicine
DX: A41.89 Other specified sepsis (principal); G93.41 Metabolic encephalopathy; N39.0 Urinary tract infection, site not specified; B96.1 Klebsiella pneumoniae [K. pneumoniae] as the cause of diseases classified elsewhere; I25.10 Atherosclerotic heart disease of native coronary artery without angina pectoris; I11.0 Hypertensive heart disease with heart failure; I50.9 Heart failure, unspecified; D75.1 Secondary polycythemia; E11.65 Type 2 diabetes mellitus with hyperglycemia; Z79.4 Long term (current) use of insulin; F39 Unspecified mood [affective] disorder; Z95.1 Presence of aortocoronary bypass graft; E78.5 Hyperlipidemia, unspecified; G47.33 Obstructive sleep apnea (adult) (pediatric); Z87.891 Personal history of nicotine dependence
CPT/HCPCS: 36415; 36600; 71045; 80053; 81001; 82803; 83036; 83605; 83735; 84484; 85025; 87040; 87077; 87088; 87186; 87502; 94660; 97162; 97530; J0456; J0692; J0696; J2405; J3475; J7030; J7050; J7120

== ENCOUNTER 2018-03-17 19:07 | Emergency (ER) | payer MEDICARE, OTHER ==
[~2018-03-17] VITALS: Ht 177.8 cm; Wt 125.8 kg
[~2018-03-17 19:07] MED LIST changes: +BUPROPION HCL150 M2 PO; +COL-RITE100 MG PO; +KEFLEX500 MG PO; +METFORMIN HCL500 M2 PO; +MUCINEX600 MG PO; +PIOGLITAZONE HC15 MG PO
[2018-03-17] MEDS ORDERED: CEPHALEXIN500 MG PO (22:20)
--- NOTE | 2018-03-18 07:16 | EKG ---
[facility] [address] [facility] [place] [address] Signed Normal sinus rhythm Right bundle branch block Abnormal ECG No previous ECGs available Confirmed by ATIF BARBOSA MD ([id number]) on 03/18/2018 7:16:03 AM Electronically Signed By: ATIF BARBOSA MD 03/18/18 0716 PATIENT NAME: NOVA HERNANDEZ Electrocardiogram DATE OF : 43 PHYSICIAN: ATIF BARBOSA MD REPORT #: [id number] REPORT IS CONFIDENTIAL AND NOT TO BE RELEASED WITHOUT AUTHORIZATION
== END 2018-03-17 22:42 | disposition home or self-care (01) ==
LOC: ED 19:07
DX: N39.0 Urinary tract infection, site not specified (principal); I11.0 Hypertensive heart disease with heart failure; I50.9 Heart failure, unspecified; E11.9 Type 2 diabetes mellitus without complications; Z87.891 Personal history of nicotine dependence; Z91.048 Other nonmedicinal substance allergy status; Z79.899 Other long term (current) drug therapy; Z79.84 Long term (current) use of oral hypoglycemic drugs
CPT/HCPCS: 36415; 71045; 80053; 81001; 83605; 85025; 87040; 87077; 87088; 87186; 93005; 93010; 96361; 96374; 99283; J0692; J7030

== ENCOUNTER 2018-03-19 10:11 | Emergency (ER) | payer MEDICARE, OTHER ==
[~2018-03-19] VITALS: Ht 177.8 cm; Wt 125.6 kg
[~2018-03-19 10:11] MED LIST changes: +CEPHALEXIN500 MG PO
[2018-03-19] MEDS ORDERED: LEVAQUIN500 MG PO (11:51)
== END 2018-03-19 12:29 | disposition home or self-care (01) ==
LOC: ED 10:11
DX: N39.0 Urinary tract infection, site not specified (principal); E11.65 Type 2 diabetes mellitus with hyperglycemia; I11.0 Hypertensive heart disease with heart failure; I50.9 Heart failure, unspecified; Z87.891 Personal history of nicotine dependence; Z88.8 Allergy status to other drugs, medicaments and biological substances
CPT/HCPCS: 71046; 80053; 81001; 83605; 85025; 87088; 96361; 96374; 99283; J7030

== ENCOUNTER 2020-07-02 12:00 | Emergency (ER) | payer MEDICARE, OTHER ==
[~2020-07-02] VITALS: Ht 177.8 cm; Wt 125.6 kg
[~2020-07-02 12:00] MED LIST changes: +ACTOS45 MG PO; -BUPROPION HCL150 M2 PO; +BUPROPION XL150 MG PO; +LEVAQUIN500 MG PO; -PIOGLITAZONE HC15 MG PO
[2020-07-02] MEDS ORDERED: PRAVASTATIN SOD40 MG PO (12:08)
[2020-07-02] MEDS ORDERED: FLOMAX0.4 MG PO (12:08)
[2020-07-02] MEDS ORDERED: ONDANSETRON ODT8 MG PO (15:42)
== END 2020-07-02 16:02 | disposition home or self-care (01) ==
LOC: ED 12:00
DX: K29.00 Acute gastritis without bleeding (principal); E11.9 Type 2 diabetes mellitus without complications; I11.0 Hypertensive heart disease with heart failure; I50.9 Heart failure, unspecified; Z87.891 Personal history of nicotine dependence
CPT/HCPCS: 74177; 80053; 81001; 83690; 83735; 85025; 96374; 99284-25; J2405; J7030; Q9967

== ENCOUNTER 2020-07-05 10:14 | Inpatient (IN) | payer MEDICARE, OTHER ==
[~2020-07-05] VITALS: Ht 177.8 cm; Wt 136.1 kg
[~2020-07-05 10:14] MED LIST changes: +FLOMAX0.4 MG PO; +ONDANSETRON ODT8 MG PO; +PRAVASTATIN SOD40 MG PO
--- OUTSIDE RECORDS SUMMARY | 2020-07-05 10:18 | XMS ---
PreManage Notification: NOVA HERNANDEZ Security Hospitality Workers Events No recent Security Events currently on file CRITERIA MET - [facility] - 2 Visits in 30 Days CARE PROVIDERS There are no care providers on record at this time. Eduardo has no Care Guidelines for this patient. Care History Medical/Surgical 03/23/2018 [facility] - CHW contacted patient who stated he has family support system 4 children. - CHW is concerned that the patient is at home with his who has stage 4 cancer. Patient stated his kids are very much involved with his care and his older daughter Андрей De Leon is a good contact if seen in the ED. Patient could not remember the contact number for his daughter. - CHW will be scheduling a home visit with this patient. Bennie VISIT COUNT (12 MO.) 2 [facility] TOTAL 2 NOTE: Visits indicate total known visits. ED/C VISIT TRACKING (12 MO.) 07/05/2020 10:15 N[facility] Rodriguez [place] TYPE: Emergency COMPLAINT: - ABDOMINAL PAIN 07/02/2020 12:00 NID[facility] Rodriguez [place] TYPE: Emergency COMPLAINT: - ABD PAIN DIAGNOSES: - Heart failure, unspecified - Acute gastritis without bleeding - Nausea with vomiting, unspecified - Personal history of nicotine dependence - Type 2 diabetes mellitus without complications - Hypertensive heart disease with heart failure INPATIENT VISIT TRACKING (12 MO.) No inpatient visits to display in this time frame [email or web address]
[2020-07-05] MEDS ORDERED: JANUVIA100 MG PO (15:11)
[2020-07-05] MEDS ORDERED: ACEBUTOLOL HCL200 MG PO (15:18)
[2020-07-05] MEDS ORDERED: CHILDREN'S ASPI81 M1 PO (16:30)
[2020-07-05] MEDS ORDERED: MUCINEX600 MG PO (16:31)
[2020-07-05] MEDS ORDERED: VITAMIN D350 MC3 PO (16:34)
--- NOTE | 2020-07-06 02:45 | PATH ---
[facility] [address] [facility] [place], [place] [address] Signed ORDERING PHYSICIAN: Kang Christine MD PATIENT NAME: NOVA HERNANDEZ GENDER: Savanah : 1945 SPECIMEN(S): MOLECULAR PATHOLOGY RESULTS: SARS-CoV-2 Not Detected ADDITIONAL NOTES.: The [place] Fusion SARS-CoV-2 Assay is a multiplex real-time PCR (RT-PCR) in vitro diagnostic test intended for the qualitative detection of RNA from SARS-CoV-2 from individuals who meet COVID-19 clinical and/or epidemiological criteria. In general, SARS-CoV-2 RNA can be detected during the acute phase of infection. Positive results indicate the presence of SARS-CoV-2 RNA. Clinical correlation with patient history and other diagnostic information is necessary to determine patient infection status. Positive results do not rule out bacterial infection or co-infection with other viruses. Negative results do not preclude SARS-CoV-2 infection and should not be used as the sole basis for patient management decisions. Negative results must be combined with other clinical observations, patient history, and epidemiological information. The [place] Fusion SARS-CoV-2 Assay is not yet approved or cleared by the [place] FDA. When there are no FDA-approved or cleared tests available, and other criteria are met, FDA can make tests available under an emergency access mechanism called an Emergency Use Authorization (EUA). The EUA for this test is supported by the [place] of Health and Human Service's (HHS's) declaration that circumstances exist to justify the emergency use of in vitro diagnostics for the detection and/or diagnosis of the virus that causes COVID-19. This EUA will remain in effect for the duration of the COVID-19 declaration justifying emergency of IVDs, unless it is terminated or revoked by FDA, after which the test may no longer be used. The [place] Fusion SARS-CoV-2 Assay is for use only under EUA in US laboratories certified under the Clinical Laboratory Improvement Amendments of 1987 (CLIA) to perform high complexity tests. [facility] is certified under CLIA to perform high complexity PATIENT NAME: NOVA HERNANDEZ PATHOLOGY DATE OF : 43 REPORT #: [id number] PHYSICIAN: ADEEL NEWTON PCP: ELSA WINKLER MD REPORT IS CONFIDENTIAL AND NOT TO BE RELEASED WITHOUT AUTHORIZATION [address] [address] Signed clinical laboratory testing. PERFORMING LABORATORY.: Molecular testing was performed by [facility] [place] [address] ([employer]: Abisai Miller D.O.; CLIA#: [id number]) Diagnostician: System Interface Pathologist Electronically Signed 07/06/2020 Copies: ~ PATIENT NAME: NOVA HERNANDEZ PATHOLOGY DATE OF : 43 REPORT #: [id number] PHYSICIAN: ADEEL PATHOLOGY PCP: ELSA WINKLER MD REPORT IS CONFIDENTIAL AND NOT TO BE RELEASED WITHOUT AUTHORIZATION
[2020-07-07] MEDS ORDERED: FLOMAX0.4 MG PO (09:37)
== END 2020-07-07 12:25 | disposition home or self-care (01) | DRG 682 ==
LOC: ED 10:14 → MS 14:22
PROVIDERS: ADMIT Internal Medicine
DX: N17.9 Acute kidney failure, unspecified (principal); G93.41 Metabolic encephalopathy; Z20.828 Contact with and (suspected) exposure to other viral communicable diseases; A08.4 Viral intestinal infection, unspecified; E11.9 Type 2 diabetes mellitus without complications; D75.1 Secondary polycythemia; E78.5 Hyperlipidemia, unspecified; I10 Essential (primary) hypertension; F39 Unspecified mood [affective] disorder; I25.10 Atherosclerotic heart disease of native coronary artery without angina pectoris; R33.9 Retention of urine, unspecified; Z66 Do not resuscitate; Z79.84 Long term (current) use of oral hypoglycemic drugs; Z95.1 Presence of aortocoronary bypass graft; Z79.82 Long term (current) use of aspirin; Z79.899 Other long term (current) drug therapy
CPT/HCPCS: 36415; 51702; 71045; 74018; 80048; 80053; 81001; 82565; 82570; 83690; 84300; 84520; 84540; 85025; 87046; 87493; 97110; 97116; 97162; 99285-25; C9803; J1815; J2405; J7030; J7121

== ENCOUNTER 2020-10-26 15:07 | Inpatient (IN) | payer MEDICARE, OTHER ==
[~2020-10-26] VITALS: Ht 177.8 cm; Wt 121.2 kg
[~2020-10-26 15:07] MED LIST changes: +CHILDREN'S ASPI81 M1 PO; +JANUVIA100 MG PO; +VITAMIN D350 MC3 PO
[2020-10-26] MEDS ORDERED: TAMSULOSIN HCL0.4 MG PO (15:27)
[2020-10-26] MEDS ORDERED: PIOGLITAZONE HC45 MG PO (15:27)
[2020-10-29] MEDS ORDERED: MUCINEX600 MG PO (09:37)
[2020-10-29] MEDS ORDERED: VITAMIN D250 MCG PO (09:37)
[2020-10-29] MEDS ORDERED: BUPROPION HCL150 M2 PO (10:28)
--- NOTE | 2020-11-01 16:28 | PATH ---
[facility] [address] [place], [place] [address] Signed SPECIMEN(S): A DUODNEUM SPECIMEN(S): B ANTRUM/PYLORUS SPECIMEN(S): C DISTAL LOWER ESOPHAGUS SPECIMEN SOURCE: A. DUODNEUM B. ANTRUM/PYLORUS C. DISTAL LOWER ESOPHAGUS CLINICAL HISTORY: Nausea, coffee-ground emesis. Diffuse gastritis. MICROSCOPIC DESCRIPTION: Histologic sections of all submitted blocks are examined by light microscopy. These findings, together with the gross examination, support the pathologic diagnosis. A Helicobacter pylori immunostain is performed on (B1) with appropriate positive and negative controls and is negative for organisms. [facility] FINAL PATHOLOGIC DIAGNOSIS: A. Duodenum, biopsy: - Benign duodenal mucosa, negative for specific diagnostic abnormality. B. Antrum/pylorus, biopsy: - Gastric-type mucosa with focal mild chronic inflammation. - A Helicobacter pylori immunostain is negative for organisms. C. Distal lower esophagus: - Benign esophageal mucosa, negative for increased epithelial eosinophils. - Negative for glandular mucosa. [facility]:C2NR GROSS DESCRIPTION: Three specimens are received in three containers, labeled "Nova Thorpe." A. The specimen, labeled "Nova Thorpe, #1," and designated on the requisition "duodenum," is received in formalin and consists of one waller soft tissue fragment that measures 0.2 cm in greatest dimension. The specimen is entirely submitted in cassette (A1). B. The specimen, labeled "Nova Thorpe, #2," and designated on the requisition "antrum/pylorus," is received in formalin and consists of one waller soft tissue fragment that measures 0.4 cm in greatest dimension. The specimen is entirely submitted in cassette (B1). C. The specimen, labeled "Nova Thorpe, #3," and designated on the requisition "distal lower esophagus," is received in formalin and consists of two white-waller PATIENT NAME: NOVA THORPE PATHOLOGY DATE OF : 43 REPORT #: [id number] PHYSICIAN: ADEEL PATHOLOGY PCP: ELSA WINKLER MD REPORT IS CONFIDENTIAL AND NOT TO BE RELEASED WITHOUT AUTHORIZATION [facility] [address] [place], [place] [address] Signed soft tissue fragment(s) that measure 0.2 and 0.4 cm in greatest dimension. The specimen is entirely submitted in cassette (C1). FB (under the direct supervision of a pathologist) The Gross Description was prepared using a voice recognition system. The report was reviewed for accuracy; however, sound-alike word errors, addition and/or deletions may occur. If there is any question about this report, please contact Client Services. ADDITIONAL NOTES: Immunohistochemical and/or in situ hybridization studies were performed on this case with the appropriate positive controls that react as expected. This test was developed and its performance characteristics determined by [facility]. It has not been cleared or approved by the U.S. Food and Drug Administration. The FDA has determined that such clearance or approval is not necessary. This test is used for clinical purposes. It should not be regarded as investigational or for research. [facility] is certified under the Clinical Laboratory Improvement Amendments of 1988 (CLIA) as qualified to perform high complexity clinical laboratory testing. PERFORMING LABORATORY: The technical component was performed by [facility], [address] [place] [address] (Procedure Tech: Kalie Guadalupe MD; CLIA# [id number]). Professional interpretation was performed by [facility], [facility], [address] [place] [address] Ave[address] [place] [address]. Diagnostician: Bk Almeida MD Pathologist Electronically Signed 11/01/2020 Copies: ~ PATIENT NAME: NOVA THORPE PATHOLOGY DATE OF : 43 REPORT #: [id number] PHYSICIAN: ADEEL PATHOLOGY PCP: ELSA WINKLER MD REPORT IS CONFIDENTIAL AND NOT TO BE RELEASED WITHOUT AUTHORIZATION
[2020-11-01] MEDS ORDERED: CEPHALEXIN500 MG PO (20:08)
[2020-11-01] MEDS ORDERED: METOCLOPRAMIDE H5 MG PO (20:10)
[2020-11-01] MEDS ORDERED: FAMOTIDINE20 MG PO (20:10)
--- NOTE | 2020-11-02 08:55 | EKG ---
[facility] [address] [facility] [place] [address] Signed Normal sinus rhythm Right bundle branch block Abnormal ECG When compared with ECG of 17-MAR-2018 19:26, No significant change was found Confirmed by GIO JONAS MD ([id number]) on 11/02/2020 8:55:44 AM Electronically Signed By: GIO JONAS MD 11/02/20 0855 PATIENT NAME: MARYNOVA PENNIE Electrocardiogram DATE OF : 43 PHYSICIAN: GIO JONAS MD REPORT #: [id number] REPORT IS CONFIDENTIAL AND NOT TO BE RELEASED WITHOUT AUTHORIZATION
--- NOTE | 2020-11-02 09:00 | OR ---
[facility] [address] [place], [place] [address] Signed DATE OF OPERATION: 10/29/2020 SURGEON: Nova Fountain MD PREOPERATIVE DIAGNOSES: 1. Recent hospitalization with probable sepsis protracted nausea and vomiting, questionable coffee-ground emesis. 2. Diabetes long-standing. 3. Multiple comorbidities including morbid obesity. 4. Urinary tract infection, chronic indwelling Fowler catheter. POSTOPERATIVE DIAGNOSES: 1. Mild diffuse gastritis, no evidence of gastric outlet obstruction, neoplasm, ulceration, or bleeding. 2. Normal-appearing esophagus. PROCEDURE: Esophagogastroduodenoscopy with biopsy. ANESTHESIA: Intravenous sedation, propofol infusion; Nova Reed CRNA INDICATIONS: This quite markedly debilitated 75-year-old obese white man is a patient of Dr. Canada, admitted to the hospital recently by Dr. Patel, hospitalist care, now assumed by Dr. Mckeon. He was noted to have protracted nausea and vomiting, which was difficult to control. CT scan was performed, which showed thickening of the stomach and concern for neoplasm, however, unlikely. There was additionally considered to be possible coffee-grounds emesis (which I doubted). His hematocrit is 37, has been stable for 48 hours. His admission hematocrit was greater than 43. He showed no evidence of blood per rectum or hematemesis. I am concerned as he may well have a gastroparesis problem, which account for his protracted nausea and vomiting. He was noted to have urinary tract infection based on clinical findings and though he does have an indwelling Fowler catheter. The patient has numerous medical comorbidities including diabetes and morbid obesity. He has been observed and is now improving clinically. Broad-spectrum antibiotics were used initially. Hospitalist, Dr. Mckeon wishes to proceed with upper endoscopy to better characterize the cause of his possible persistent nausea and vomiting previously and specifically ruled out neoplasm, ulceration, or gastric outlet obstruction. The patient Electronically Signed By: NOVA FOUNTAIN MD 11/02/20 0900 PATIENT NAME: NOVA HERNANDEZ OPERATIVE REPORT DATE OF : 43 REPORT #: [id number] PHYSICIAN: NOVA FOUNTAIN MD PCP: ELSA CANADA MD REPORT IS CONFIDENTIAL AND NOT TO BE RELEASED WITHOUT AUTHORIZATION [facility] [address] [place], [place] [address] Signed understands the risks of bleeding, infection, and perforation related to upper endoscopy and wished to proceed. FINDINGS: The esophagus was normal. The stomach had mild diffuse gastritis. There was no sign of gastric outlet obstruction. The pylorus is normal as was the duodenum. Biopsies were taken throughout to assess for celiac disease. Gastritis, which was diffuse. H pylori (CLOtest negative) and to assess for other abnormalities. DESCRIPTION OF PROCEDURE: The patient was brought to the endoscopy suite and in the semi-recumbent upright position, he was given intravenous sedation with propofol infusional technique by the photograph editor. He is considered ASA class 4E. After satisfactory sedation, a bite block was placed and an Olympus video upper endoscope was passed into the hypopharynx. Vocal cords appeared normal. There was no sign of upper airway and digestive tract problem. The scope was easily passed into the esophagus, throughout its length it was normal. The scope was passed into the stomach, it was insufflated with air. There was no sign of retained food. Rugal folds were reasonably normal. I did not appreciate much regarding antral motility. There was mild diffuse gastritis of the antrum. The pylorus was normal. The scope was passed through into the duodenum. Duodenum was biopsied. The ampulla of Vater was normal. The scope was withdrawn and biopsies then taken of the antrum and more proximal stomach for both DAVIDE and pathologic testing. Retroflexed view did not show a hiatal hernia. Per Se of the flap valve was somewhat effaced. The scope was withdrawn to the distal esophagus, biopsies obtained there, though it appeared normal. Midesophagus was not biopsied. More proximal esophagus was normal. The scope was removed. The patient was taken to the recovery room in good condition. CONCLUDING DIAGNOSIS: Mild diffuse gastritis, but no evidence of gastric outlet obstruction or neoplasm or ulcer. The patient is at increased risk of gastroparesis, which may be the underlying etiology of his protracted nausea and vomiting; certainly it could have been related to urosepsis as well; however. Consideration might be made for a solid food emptying study, which would better characterize the possibility of gastroparesis. I reviewed this with Dr. Mckeon. Electronically Signed By: NOVA FOUNTAIN MD 11/02/20 0900 PATIENT NAME: NOVA HERNANDEZ OPERATIVE REPORT DATE OF : 43 REPORT #: [id number] PHYSICIAN: NOVA FOUNTAIN MD PCP: ELSA CANADA MD REPORT IS CONFIDENTIAL AND NOT TO BE RELEASED WITHOUT AUTHORIZATION [facility] [address] [place] [address] Signed MD PIOTR Campos/MODL /[id number] cc: MD Atif Jasso MD Lohith Veerappa Reddy, MD Copies: ATIF PATEL MD, LOHITH VEERAPPA MD ~ Electronically Signed By: NOVA FOUNTAIN MD 11/02/20 0900 PATIENT NAME: NOVA HERNANDEZ OPERATIVE REPORT DATE OF : 43 REPORT #: [id number] PHYSICIAN: NOVA FOUNTAIN MD PCP: ELSA CANADA MD REPORT IS CONFIDENTIAL AND NOT TO BE RELEASED WITHOUT AUTHORIZATION
--- NOTE | 2020-11-02 09:00 | CONS ---
[facility] [address] [place], [place] [address] Signed DATE OF CONSULTATION: 10/27/2020 REQUESTING PHYSICIAN: Lady Patel MD. ISSUE: Questionable hematemesis, admission for presumed urosepsis. HISTORY OF PRESENT ILLNESS: This very morbidly obese 75-year-old white male with advanced diabetes, has a chronic indwelling Fowler catheter. He was taken to the emergency room last night and evaluated by Dr. Dakotah Keith. His urinalysis was abnormal (as might be expected with indwelling Fowler catheter showing a pH of 6, slightly cloudy appearance). Urine protein of 1000, urine nitrite positive, leukocyte esterase trace and white cells of 15, red cells of 2. He was noted to have a normal white count of 8.9, and his complaints were that of right lower abdominal pain. A CT scan of the abdomen and pelvis was performed at approximately 6:00 p.m., which shows questionable gastric antral wall thickening. Consideration of inflammation or neoplasm was made by the radiologist (Dr. Peraza). The patient had vomiting and abdominal pain and had been given Zofran, which was apparently ineffective. His blood sugar was elevated to 218. Magnesium low at 1.7. Lipase normal at 18 and liver enzymes normal. The patient has had history of cholecystectomy. The CT scan was performed, did not show signs of appendicitis or any other intraabdominal problem. I have reviewed them myself and it shows a considerable amount of intraabdominal mesenteric fat. No sign of inflammatory focus per say. There is no sign of hydronephrosis nor sign of bladder abnormality proper. Both kidneys appeared to be well perfused. There are cysts in each kidney. To my inspection, the prostate was symmetric though somewhat enlarged. A Fowler catheter was not visible to me except in the lateral projection and the bladder appeared to be well decompressed. I was called last night Thursday by Dr. Patel on the possibility he may need upper endoscopy as there was some question whether he had hematemesis. There is no observer that saw blood, but only dark material had been vomited and it was not . Our plan last night was to re-evaluate his progress and particularly his lab study as his hematocrit initially was 45.8. This morning, his hematocrit is 41.4. Currently, the patient says he feels much better. He had been somewhat sedated related to administration of Reglan to control his nausea and vomiting. He is now more lucid. PAST MEDICAL HISTORY: Includes significant obesity as well as diabetes mellitus. I have seen him in the past, Electronically Signed By: NOVA FOUNTAIN MD 11/02/20 0900 PATIENT NAME: NOVA HERNANDEZ CONSULTATION DATE OF : 43 REPORT #: [id number] PHYSICIAN: NOVA FOUNTAIN MD PCP: ELSA WINKLER MD REPORT IS CONFIDENTIAL AND NOT TO BE RELEASED WITHOUT AUTHORIZATION [address] [address] Signed though there is no record available to me in the hospital system to confirm just what that was for. It may have been for cholecystectomy in the past. The patient does not smoke, though he did previously, does not use alcohol. He is . Other medical issues include hypertension, coronary artery disease, benign prostatic hypertrophy, chronic Fowler catheterization, obstructive sleep apnea and type 2 diabetes with hyperlipidemia. His primary provider is Dr. Jonas. REVIEW OF SYSTEMS: He denies any abdominal pain at this time. Does not feel any nausea and has had no vomiting. He denies any recent or previous hematemesis or known blood per rectum. PHYSICAL EXAMINATION: GENERAL: This is a pleasant white man, who is comfortable and nontoxic in appearance. VITAL SIGNS: Room air saturations are 99%. His blood pressure is 115/60, pulse is 71, temperature 98.5. HEENT: Mucous membranes are reasonably moist. Trachea is midline. CHEST: Shows diminished breath sounds bilaterally. He has no cough. HEART: Regular. ABDOMEN: Massively obese. Palpation reveals no focal tenderness. I detect no ascites. EXTREMITIES: Show no clubbing, cyanosis, or edema. CURRENT LAB STUDIES: This morning show white count elevated to 14.4 up from 8.9, hematocrit 41.4, platelets 142,000. Chem profile normal with potassium of 4.1, creatinine of 1.05, glucose now 175, magnesium 1.8, phosphorus 4.2. His COVID test was negative (rapid type). ASSESSMENT AND PLAN: I have reviewed his CT scan, his hematocrit findings and his CT scan images in detail. I think it is unlikely that he is having hematemesis or blood per rectum or a GI bleed at this point. He may have had a low-grade urinary tract infection accounting for his nausea and vomiting, although diabetes-related gastroparesis would be a strong consideration as well. He is currently well managed with IV antibiotic (ceftriaxone) and shows no sign of progression of disorientation and much improvement of his nausea and vomiting. We will stand available should things change and consideration for endoscopy be necessary at that point. As there is a paucity of records available in the electronic record, I will review those records I have on him in my office and see if there are other findings from the past that may contribute to his current situation. Electronically Signed By: NOVA FOUNTAIN MD 11/02/20 0900 PATIENT NAME: NOVA HERNANDEZ CONSULTATION DATE OF : 43 REPORT #: [id number] PHYSICIAN: NOVA FOUNTAIN MD PCP: ELSA WINKLER MD REPORT IS CONFIDENTIAL AND NOT TO BE RELEASED WITHOUT AUTHORIZATION [address] [place], [place] [address] Signed MD PIOTR Campos/NAKIAL /[id number] cc: MD Lady Marcos MD Copies: GIO JONAS MD, CYNTHIA MD ~ Electronically Signed By: NOVA FOUNTAIN MD 11/02/20 0900 PATIENT NAME: NOVA HERNANDEZ CONSULTATION DATE OF : 43 REPORT #: [id number] PHYSICIAN: NOVA FOUNTAIN MD PCP: ELSA WINKLER MD REPORT IS CONFIDENTIAL AND NOT TO BE RELEASED WITHOUT AUTHORIZATION
== END 2020-11-02 10:40 | DRG 699 ==
LOC: ED 15:07 → MS 20:12
PROVIDERS: Surgery; ADMIT Internal Medicine; ATTEND Internal Medicine
PROC: 0DB78ZX Excision of Stomach, Pylorus, Via Natural or Artificial Opening Endoscopic, Diagnostic (ICD-10-PCS; 2020-10-29)
PROC: 0DB68ZX Excision of Stomach, Via Natural or Artificial Opening Endoscopic, Diagnostic (ICD-10-PCS; 2020-10-29)
PROC: 0DB38ZX Excision of Lower Esophagus, Via Natural or Artificial Opening Endoscopic, Diagnostic (ICD-10-PCS; 2020-10-29)
PROC: 0DB98ZX Excision of Duodenum, Via Natural or Artificial Opening Endoscopic, Diagnostic (ICD-10-PCS; principal; 2020-10-29 14:45)
DX: T83.511A Infection and inflammatory reaction due to indwelling urethral catheter, initial encounter (principal); N30.00 Acute cystitis without hematuria; E11.43 Type 2 diabetes mellitus with diabetic autonomic (poly)neuropathy; Z20.828 Contact with and (suspected) exposure to other viral communicable diseases; B96.1 Klebsiella pneumoniae [K. pneumoniae] as the cause of diseases classified elsewhere; K29.70 Gastritis, unspecified, without bleeding; E66.01 Morbid (severe) obesity due to excess calories; I10 Essential (primary) hypertension; I25.10 Atherosclerotic heart disease of native coronary artery without angina pectoris; N40.1 Benign prostatic hyperplasia with lower urinary tract symptoms; R33.8 Other retention of urine; G47.33 Obstructive sleep apnea (adult) (pediatric); K31.84 Gastroparesis; E78.5 Hyperlipidemia, unspecified; F39 Unspecified mood [affective] disorder; Z68.38 Body mass index [BMI] 38.0-38.9, adult; Z88.8 Allergy status to other drugs, medicaments and biological substances; Z87.891 Personal history of nicotine dependence; Z74.01 Bed confinement status; Z79.899 Other long term (current) drug therapy; Z79.84 Long term (current) use of oral hypoglycemic drugs; Z79.82 Long term (current) use of aspirin
CPT/HCPCS: 36415; 74018; 74177; 78264; 80048; 80053; 81001; 83690; 83735; 84100; 85025; 86850; 86900; 86901; 87077; 87088; 87186; 88305; 88342; 93005; 93010; 96375; 97110; 97161; 97530; 99285-25; A9541; C9113; G0500; J0696; J1815; J2405; J2704; J2765; J3480; J7121; Q9967; U0003

== ENCOUNTER 2020-12-31 17:49 | Emergency (ER) | payer MEDICARE, OTHER ==
[~2020-12-31] VITALS: Ht 177.8 cm; Wt 121.1 kg
[~2020-12-31 17:49] MED LIST changes: +BUPROPION HCL150 M2 PO; +FAMOTIDINE20 MG PO; +METOCLOPRAMIDE H5 MG PO; +PIOGLITAZONE HC45 MG PO; +TAMSULOSIN HCL0.4 MG PO; +VITAMIN D250 MCG PO
[2020-12-31] MEDS ORDERED: AMOXICILLIN500 MG PO (19:43)
== END 2020-12-31 20:40 | disposition home or self-care (01) ==
LOC: ED 17:49
DX: N39.0 Urinary tract infection, site not specified (principal); I11.0 Hypertensive heart disease with heart failure; E11.9 Type 2 diabetes mellitus without complications; I50.9 Heart failure, unspecified; G47.30 Sleep apnea, unspecified; Z87.891 Personal history of nicotine dependence; Z88.8 Allergy status to other drugs, medicaments and biological substances; Z79.899 Other long term (current) drug therapy; Z79.82 Long term (current) use of aspirin; Z79.84 Long term (current) use of oral hypoglycemic drugs
CPT/HCPCS: 51702; 71045; 80053; 81001; 83605; 85025; 99284-25

== ENCOUNTER 2021-08-03 23:23 | Emergency (ER) | payer MEDICARE, OTHER ==
[~2021-08-03] VITALS: Ht 177.8 cm; Wt 121.1 kg
[~2021-08-03 23:23] MED LIST changes: +AMOXICILLIN500 MG PO
[2021-08-04] MEDS ORDERED: SENNA PLUS 8.61 EACH PO (00:04)
[2021-08-04] MEDS ORDERED: SERTRALINE HCL50 MG PO (00:05)
[2021-08-04] MEDS ORDERED: CORRECTOL5 MG PO (00:06)
[2021-08-04] MEDS ORDERED: AMLODIPINE BESYL5 MG PO (00:06)
[2021-08-04] MEDS ORDERED: MIRALAX17 GM PO (00:07)
[2021-08-04] MEDS ORDERED: TYLENOL325 M1 PO (00:08)
[2021-08-04] MEDS ORDERED: VITAMIN D250 MCG PO (00:09)
[2021-08-04] MEDS ORDERED: ZYRTEC10 M3 PO (00:12)
[2021-08-04] MEDS ORDERED: LACTULOSE10 GM/151 PO (00:13)
[2021-08-04] MEDS ORDERED: CEPHALEXIN500 MG PO (02:20)
== END 2021-08-04 02:45 | disposition home or self-care (01) ==
LOC: ED 23:23
DX: N39.0 Urinary tract infection, site not specified (principal); I11.0 Hypertensive heart disease with heart failure; I50.9 Heart failure, unspecified; E11.9 Type 2 diabetes mellitus without complications; G47.30 Sleep apnea, unspecified; D75.1 Secondary polycythemia; Z87.891 Personal history of nicotine dependence; Z88.8 Allergy status to other drugs, medicaments and biological substances; Z79.899 Other long term (current) drug therapy; Z79.82 Long term (current) use of aspirin
CPT/HCPCS: 80053; 81001; 83690; 85025; 96365; 96375; 99284-25; J0696; J2405; J2550; J7030

== ENCOUNTER 2022-07-03 20:40 | Inpatient (IN) | payer MEDICARE, OTHER ==
[~2022-07-03] VITALS: Ht 177.8 cm; Wt 74.8 kg
[~2022-07-03 20:40] MED LIST changes: +AMLODIPINE BESYL5 MG PO; +AMOX TR-K CLV1 EAC1 PO; +BISACODYL5 MG PO; +CORRECTOL5 MG PO; +DULCOLAX10 MG PR; +FLEET ENEMA133 ML PR; +GERI-KOT8.6 MG PO; +GLUCAGON EMERGEN1 MG INJ; +LACTULOSE10 GM/151 PO; +MIRALAX17 GM PO; +ONDANSETRON ODT4 MG SL; +PROBIOTIC1 EAC1 PO; +SERTRALINE HCL50 MG PO; +TYLENOL325 MG PO; +ZYRTEC10 M3 PO
--- OUTSIDE RECORDS SUMMARY | 2022-07-03 20:42 | XMS ---
PreManage Notification: NOVA HERNANDEZ Security Senior Courtroom Clerk Events No recent Security Events currently on file CRITERIA MET - PDMP CARE PROVIDERS KAVON CROOKS Silk Blocker Current MAIRO ALBERTO URENA F PHONE: [phone] TYREL SIN Internal Medicine Current PHONE: [phone] Natalee Bernstein Toys Inspector/Nutrition Director 01/21/2022-Current PHONE: [phone] JADA ALCARAZ Nurse Practitioner Current PHONE: [phone] ELSA WINKLER Family Medicine 07/05/2020-Current PHONE: Unknown KHURRAM MCGARRY Nurse Practitioner: Family Current PHONE: Unknown JAZMIN VALDIVIA Internal Medicine Current PHONE: [phone] PHOEBE MCBRIDE Nurse Practitioner Current PHONE: [phone] ALE FLORES I. Physician Foreign Exchange Position Clerk Current PHONE: Unknown CRISTIANA LEI Nurse Practitioner Current PHONE: Unknown CANDACE BOYLE Nurse Practitioner Lorin VIVAR PHONE: [phone] THOR Nurse Practitioner Lorin ERWIN PHONE: [phone] RADHA [facility] Current PHONE: Unknown MARGARETTE [facility] Current PHONE: [phone] CONSTANTIN PAYTON Physician Foreign Exchange Position Clerk Current PHONE: Unknown Eduardo has no Care Guidelines for this patient. Care History Medical/Surgical 07/05/2020 [facility] - Patient is currently established with [facility]. If patient is seen in the ED during business hours. Please contact CHWs at [facility]. Care Recommendation: If this patient has had 5 or more Emergency Department visits in the last 12 months.\T\nbsp; Patient will require education on the scope and purpose of the ED as an acute care provider not a Primary Care Provider and should not be utilized for chronic conditions.\T\nbsp; These are guidelines and the provider should exercise clinical judgment when providing care. E.D. VISIT COUNT (12 MO.) 3 [facility]. TOTAL 3 NOTE: Visits indicate total known visits. ED/UCC VISIT TRACKING (12 MO.) 07/03/2022 20:41 [facility] [place] TYPE: Emergency COMPLAINT: - ALTERED LOC 08/30/2021 22:03 N[facility] Rodriguez [place] TYPE: Emergency COMPLAINT: - ALTERED LOC 08/03/2021 23:23 N[facility] Rodriguez [place] TYPE: Emergency COMPLAINT: - VOMITING DIAGNOSES: - Heart failure, unspecified - Urinary tract infection, site not specified - Type 2 diabetes mellitus without complications - rodent exterminator (current) use of aspirin - Allergy status to other drugs, medicaments and biological substances - Secondary polycythemia - Personal history of nicotine dependence - Nausea with vomiting, unspecified - Sleep apnea, unspecified - Other fdc (current) drug therapy - Hypertensive heart disease with heart failure INPATIENT VISIT TRACKING (12 MO.) 08/30/2021 22:04 NIDHI Rodriguez [place] TYPE: Observation COMPLAINT: - AKANKSHA, DEMENTIA DIAGNOSES: - Allergy status to other drugs, medicaments and biological substances - Unspecified dementia without behavioral disturbance - Urinary tract infection, site not specified - Enterococcus as the cause of diseases classified elsewhere - Hypertensive heart disease with heart failure - Contact with and (suspected) exposure to COVID-19 - Personal history of nicotine dependence - Acute kidney failure, unspecified - Heart failure, unspecified - Metabolic encephalopathy - Type 2 diabetes mellitus without complications [email or web address]
--- NOTE | 2022-07-04 02:00 | NUR ---
REPORT RECEIVED FROM ED RN. PT ARRIVED TO CCU VIA STRETCHER. PT HYPOTENSIVE ON ARRIVAL TO UNIT. JARA CATH IN PLACE. CALL LIGHT AT HAND.
--- NOTE | 2022-07-04 04:00 | NUR ---
PT REMAINS HYPOTENSIVE- LEVOPHED INFUSING ORDERED. JARA CATHETER IN PLACE. IVF INFUSING VIA PATENT IV. PT RESTING IN BED W/ HIS EYES CLOSED AND APPEARS COMFORTABLE. RESPIRATIONS EVEN AND UNLABORED. NO DISTRESS NOTED. CALL LIGHT WITHIN REACH. WILL CONTINUE TO MONITOR.
--- NOTE | 2022-07-04 06:00 | NUR ---
PT IS RESTING IN BED W/ HIS EYES CLOSED AND APPEARS COMFORTABLE AT THIS TIME. REMAINS ON LEVOPHED GTT. PT IS TOLERATING IVF, ELECTROLYTE REPLACEMENT AND LEVO. JARA PATENT. RESPIRATIONS EVEN AND UNLABORED. NO DISTRESS NOTED. CALL LIGHT AT HAND. WILL CONTINUE TO MONITOR.
--- NOTE | 2022-07-04 07:51 | EKG ---
[facility] [address] [facility] [place] [address] Signed Normal sinus rhythm Right bundle branch block Abnormal ECG When compared with ECG of 30-AUG-2021 22:28, T wave inversion less evident in Anterior leads Confirmed by ATIF BARBOSA MD ([id number]) on 07/04/2022 7:51:46 AM Electronically Signed By: ATIF BARBOSA MD 07/04/22 0751 PATIENT NAME: NOVA HERNANDEZ Electrocardiogram DATE OF : 43 PHYSICIAN: ATIF BARBOSA MD REPORT #: [id number] REPORT IS CONFIDENTIAL AND NOT TO BE RELEASED WITHOUT AUTHORIZATION
--- NOTE | 2022-07-04 08:15 | NUR ---
REPORT RECEIVED FROM NIGHT RN - RN IN ROOM TO BEGIN INITIAL ASSESSMENT OF PT. PT MOSTLY NON RESPONSIVE EXCEPT FOR SOME GROSS MOVEMENT WITH TOUCH STIMULI. LEVOPHED DRIP CONFIRMED AT 16MCG/MIN, IV SITE TOLERATING INFUSION WITHOUT DIFFICULTY, FLUSHES WELL, EXTREMITY COOL WITH ADEQUATE CAP REFILL ON ALL EXTREMITIES. SON SHANEKA AT BEDSIDE ASLEEP.
--- NOTE | 2022-07-04 08:45 | NUR ---
COYOTE HUNTER COMPLETE - PT REMAINS ASLEEP HOWEVER RESPONSE TO STIMULI INCREASING. PT OPENS EYES AND SHAKES HEAD IN RESPONSE TO QUESTIONS WITH SONS VOICE AND TOUCH. LEVOPHED DRIP TITRATED DOWN TO 14 MCG/MIN. BPS TOLERATING THIS WELL. ALL OTHER VS STABLE AND WNL ORAL MEDICATIONS ORDERED HELD DUE TO PTS INABILITY TO SWALLOW AND RESPONSIVNESS TO COMMANDS. JARA CATH PATENT AND DRAINING QS TEA COLORED URINE WITH SEDIMENT. PT DOES NOT APPEAR TO BE IN PAIN - SHAKES HEAD "NO" WHEN ASKED BY SON. SHANEKA SON PROVIDED ALUMINUM SHEET CUTTER JORDYN, DENIES FURTHER NEEDS AT THIS TIME.
--- NOTE | 2022-07-04 09:45 | NUR ---
RN AT BEDSIDE, URNINE OUTPUT AND VS MONITORED AND RECORDED. ORAL CARE ATTEMPTED WITH MOISTEND SPONGE - EVOKED RESPONSE FROM PT, SWATTING AT RNS HANDS AND SHOOK HIS HEAD "NO".
--- NOTE | 2022-07-04 10:33 | NUR ---
RN IN ROOM TO ROUND ON PT - ASLEEP WITH HOB ELEVATED AT 30DEGREES, RR EVEN AND UNLABORED. PT RESPONSIVE TO TOUCH STIMULI AND FAMILY. BP MAP 65, LEVOFED DRIP AT 14MCG/MIN CURRENTLY. FAMILY DENIES QUESTIONS OR CONCERNS AT THIS TIME.
--- NOTE | 2022-07-04 11:24 | NUR ---
RN IN ROOM TO TITRATE LEVOPHED DOWN TO 12MCG/MIN. CURRENT MAP 67. WARM WASH CLOTH PROVIDED TO TO WASH PTS FACE. PT RESPONDS MINIMALLY TO THIS. , DAUGHTER AND SON AT BEDSIDE.
--- NOTE | 2022-07-04 11:38 | NUR ---
PT REPOSISTIONED TO LEFT SIDE WITH PILLOWS, PT SHAKES HEAD "YES" WHEN ASKED IF HE IS COMFORTABLE. FAMILY DENIES NEEDS AT THIS TIME. MAP REMAINS STABLE.
[2022-07-04] MEDS ORDERED: ANTI-ITCH28 G1 TOP (11:53)
[2022-07-04] MEDS ORDERED: TOPROL XL50 MG PO (12:00)
[2022-07-04] MEDS ORDERED: ERYTHROMYCIN1 GM OU (12:04)
--- NOTE | 2022-07-04 12:11 | NUR ---
PT IN BED, FAMILY AT . EYES COLSED, BUT RESPONSIVE TO MY VOICE.PT KNODDED HIS HEAD NO THAT HE WAS NOT IN PAIN. YES FOR PRAYER AND PAISE HIS HADND TO SHAKE MINE. FAMILY WAITING FOR INFO TO PT'S CONDITION. GAVE ENCOURAGEMENT, WILL FOLLOW
[2022-07-04] MEDS ORDERED: COLACE100 MG PO (12:13)
[2022-07-04] MEDS ORDERED: AMITIZA24 MCG PO (12:13)
[2022-07-04] MEDS ORDERED: DRONABINOL5 MG PO (12:30)
[2022-07-04] MEDS ORDERED: MIRALAX17 GM PO (12:34)
--- NOTE | 2022-07-04 12:36 | NUR ---
MED REC COMPLETE
--- NOTE | 2022-07-04 13:42 | NUR ---
LEVOPHED DRIP TITRATED DOWN TO 8MCG/MIN MAINTAING MAP >65. PT RESPONSIVE TO RN VOICE AND FOLLOWED COMMANDS TO OPEN EYES. SHAKES HEAD "NO" WHEN ASKED IF HE NEEDED ANYTHING. FAMILY AT BEDSIDE.
--- NOTE | 2022-07-04 14:50 | NUR ---
PT REPOSISTIONED TO BACK WITH HIPS FLOATING ON PILLOWS. URINE OUT PUT ADEQUATE AND INCREASING - LEVOPHED DRIP TITRATED TO 6MCG/MIN - CURRENT MAP 63. AT BEDSIDE, DENIES NEEDS AT THIS TIME.
--- NOTE | 2022-07-04 16:44 | NUR ---
RN IN ROOM TO ROUND ON PT - MAP STABLE AT CURRENT LEVOPHED RATE OF 6. PT MOVES AND AWAKENS WHEN RN CHANGES POSISTION OF ESTEFANI, PT SMILES WITH JOKE FROM FAMILY. URINE OUTPUT CONTINUES TO BE ADEQUATE. FAMILY DENIES NEEDS AT THIS TIME.
--- NOTE | 2022-07-04 19:00 | NUR ---
PT REPOSISTIONED TO RIGHT SIDE WITH PILLOWS PER PT REQUEST. PT RAISES ARM TO ATTEMPT TO WAVE HELLO UPON ENTRING AND SAYING HIS NAME. LEVOPHED DRIP REMAINS AT 6MCG/MIN. BPS STABLE. BOTH IV SITES TOLERATING INFUSION WITHOUT DIFFICULTY. JARA DRAINING ADEQUATE URINE OUTPUT, COLOR CONTINUES TO LIGHTEN. REPORT PROVIDED TO NIGHT PERSONAL CARE WORKER. SON AT BEDSIDE.
--- NOTE | 2022-07-04 20:58 | NUR ---
PT'S BG FOR 2100 WAS 96. HE WAS REACTIVE WHEN HIS FINGER WAS POKED BUT DID NOT OPEN HIS EYES TO VERBAL COMMENT. HIS HILLARY MAXIMUS IS AT THE BEDSIDE.
--- NOTE | 2022-07-04 21:00 | NUR ---
PATIENT TITRATED OFF NOREPI. ADEQUATE BP. PATIENT IS ALERT AND ORIENTED TO SELF. DOESN'T RESPOND VERBALLY MORE THAN A WORD OR TWO. PATIENT IS PAINFUL TO ROLL ON HIS SIDE, YELLS LOUDLY. SKIN INTACT. BARRIER CREAM APPLIED. POSITIONED TO LEFT SIDE. JARA CARE DONE. PATIENT REPORTS PAIN. REFUSED SHCEUDLED MEDS OR SIPS OF WATER. REPORTS ABD PAIN/NAUSEA. PRN ZOFRAN PROVIDED.
--- NOTE | 2022-07-04 21:22 | NUR ---
DISCUSSED PATIENT'S BLOOD GLUCOSE TREND WITH MD. IVF ORDER REVIEWED. NEW ORDERS FOR D5LR +20 K. SEE EMAR.
--- NOTE | 2022-07-04 21:49 | NUR ---
DISCUSSED WITH PT GETTING OOB AND INTO THE CHAIR. PT HAS NOT BEEM OOB YET. PT AGREED TO THE MOVE. HE MOVED SLOWLY BUT WAS ABLE TO ASSIST THE 2 STAFF. PT HAD DIFFICULTY MOVING INTO A SITTING POSITION, SLIDING TO THE EDGE OF THE BED ,STANDING AND PIVOTING TOT THE CHAIR. STAFF POVIDED ASSISTANCE AND PT WAS MOVED SAFELY TO THE CHAIR. HE IS SITTING UP IN THE CHAIR WITH PILLOW SUPPORT. CALL LIGHT IS IN REACH.
--- NOTE | 2022-07-04 23:14 | NUR ---
ATTEMPTED TO INDUCE PT TO TAKE A SIP OF WATER WITH THE INTENTION OF STARTING HIS ORAL MEDS. PT REFUSED THIS NURSE WITH A FIRM SHAKE OF HIS HEAD. HE ALSO REFUSED TO OPEN HIS EYES. HIS SON MAXIMUS IS AT THE BEDSIDE. HE ALSO ATTEMPTED TO HAVE PT TAKE SIPS OF WATER WITHOUT SUCCESS. PT FIRMLY REFUSED TO OPEN HIS MOUTH FOR THE STRAW.
--- NOTE | 2022-07-05 00:30 | NUR ---
PT VOMITED MODERATE AMOUNT CLEAR/CLEMONS FLUID. HE NODS HIS HEAD WHEN ASKED IF HE IS STILL NAUSEATED. HE SHAKES HIS HEAD WHEN ASKED IF HE FEELS LIKE THROWING UP AGAIN. GOWN IS CHANGED. PT'S FACE IS CLEANED. HE REFUSES ORAL CARE. SON IS AT THE BEDSIDE.
--- NOTE | 2022-07-05 01:00 | NUR ---
DISCUSSED PATIENT'S ABD COMPLAINTS AND EMESIS WITH . PRN ORDER FOR PHENERGAN.
--- NOTE | 2022-07-05 01:59 | NUR ---
PT CONTINUED TO HAVE NAUSEA. REFUSED ORAL CARE . PHENERGAN WAS ORDERED AND GIVEN VIA SYRINGE THROUGH THE PUMP PER PROTOCOL.
--- NOTE | 2022-07-05 03:08 | NUR ---
NAUSEA HAS BEEN RELIEVED WITH PHENERGAN. PT APPEARS TO BE ASLEEP. SON IS ROOMING IN TONIGHT.
--- NOTE | 2022-07-05 06:43 | NUR ---
PT WAS ABLE TO HAVE HIS TEMP TAKEN ORALLY. HE REFUSED SIPS OF WATER THIS AM. HE HAS ALSO REFUSED ANY OFFER OF BREAKFAST. HE HAS PAIN IN HIS LOWER ABD/PELVIC AREA. A WARM PACK WAS APPLIED AND HE NODDED THAT IT HELPED.
--- NOTE | 2022-07-05 08:30 | NUR ---
RN IN ROOM TO ASSESS PT - PT RESTING IN BED WITH EYES CLOSED UPON ENTRY, NO RESPONSE TO VERBAL OR TOUCH STIMULI. PT MORE AROUSABLE ASSESSMENT PROGRESSES, VERBALIZED "NO" DURING JARA CARE, AND LATER "GOOD MORNING" IN RESPONSE TO STAFF SAYING GOOD MORNING. PT REFUSES TO OPEN EYES OR MOUTH ON COMMAND. PT REPOSISTIONED IN BED. PT REPORTS NAUSEA WITH HEAD NOD WHEN ASKED BUT STATES NO WITH HEAD SHAKE WHEN ASKED IF HE NEEDS ANTINAUSEA MEDICATION. ABDOMEN TENDER WITH PALPATION. IV SITES FLUSHED AND WNL. VS WNL. LEVOPHED DRIP DC'D ON NOC SHIFT-BP'S REMAIN STEADY. JARA CATH CARE COMPLETE, OUT PUT INCREASING AND LIGHTENING IN COLOR, SEDIMENT STILL NOTED WITHOUT CLOTS. MD AT BEDSIDE DISCUSSIN POC WITH SON AND RN - SON DENIES QUESTIONS AT THIS TIME. SON EXPRESSES CONCERN R/T CARE PT RECEIVED AT FACILITY. PREVOUS CT REVIEWED FOR POSSIBLE ETIOLOGY OF ABD PAIN/NAUSEA/VOMITING. NEW ORDERS RECEIVED.
--- NOTE | 2022-07-05 10:00 | NUR ---
RN ROUNDING ON PT - RESTING IN BED WITH EYES CLOSED, RR EVEN AND UNLABORED. SON AT BEDSIDE.
--- NOTE | 2022-07-05 10:30 | NUR ---
LACTULOSE ENEMA ADMINISTERED - PT TOLERATED PROCEDURE WITH MINIMAL COMPLAINT OR DISCOMFORT - 400ML OF 500ML TOTAL ADMINISTERED, PATIENT UNABLE TO TOLERATE FULL DOSE. NO IMMIDIATE STOOL RETURN.
--- NOTE | 2022-07-05 11:05 | NUR ---
RN ROUNDING ON PT - PT RESPONDS "NO" WHEN ASKED IF HE HAS HAD BM. CHUX UNDER PT CLEAN AND DRY. PT REPOSISTIONED WITH PILLOW. AT BEDSIDE - UPDATED ON NIGHT PROGRESS AND CURRENT POC. DENIES QUESTIONS AT THIS TIME.
--- NOTE | 2022-07-05 12:01 | NUR ---
PT REFUSING CBG CHECKS ADAMENTLY CLENCHING FISTS TIGHT AND REPEATING "NO". AT BEDSIDE ASKING PT TO COOPERATE, PT STATES "ARE YOU CRAZY?". PT CONTINUES TO OBJECT FLUIDS BY MOUTH WITH SEVERAL ATTEMPTS WITH DIFFERENT TACTICS. ASSESSMENT UNCHANGED OTHERWISE. NO RESULTS FROM ENEMA OF YET. PT REMAINS LABILE WITH RESPONSIVNESS RANGING FROM FLACCID EXTREMITIES AND VERY LITTLE RESPONSE TO PAIN TO ALERT AND TALKING SHORT PHRASES. DISCUSSED UPDATE WITH MD - WILL HOLD CBG CHECKS IF PT REFUSES, OTHERWISE CONTINUE WITH CURRENT POC. CARE CONFERENCE SUGGESTED BASED ON PT'S REFUSAL TO INTERVENTIONS AND NUTRITION.
--- NOTE | 2022-07-05 14:47 | NUR ---
PT TO RM 121 VIA BED WITH MAXWELL BERUMEN. VITAL SIGNS TAKEN, PT UNRESPONSIVE TO VERBAL STIMULI, RESPONSIVE TO TOUCH TO FEET. AND SON AT BEDSIDE. IV FLUIDS RUNNING, JARA DRAINING. CALL LIGHT IN REACH.
--- NOTE | 2022-07-05 15:45 | NUR ---
ROUNDING ON PATIENT. PT NODS HEAD WHEN NAME IS CALLED, WILL NOT OPEN EYES. SON ATTEMPTED TO GIVE WATER, PT SAID "NO" UNABLE TO TAKE ENULOSE ORAL AT THIS TIME. BILATERAL ARMS EDEMATOUS, ELEVATED ON PILLOWS. CALL LIGHT IN REACH, FAMILY AT BEDSIDE.
--- NOTE | 2022-07-05 16:36 | NUR ---
PT BRIEF DRY, NO BM. TURNED TO RIGHT SIDED. ARMS ELEVATED ON PILLOWS. HEEL FLOATS ON. PT RESPONDS BY SHAKING HIS HEAD AND STATING "NO" FAMILY AT BEDSIDE. CALL LIGHT IN REACH.
--- NOTE | 2022-07-05 17:31 | NUR ---
FAMILY AT BEDSIDE. ATTEMPTING TO HAVE PT EAT OR DRINK, PT REFUSES BY SAYING "NO" OR SHAKING HEAD.
--- NOTE | 2022-07-05 18:16 | NUR ---
PATIENT IN BED SLEEPING, VITALS AND I/O'S COMPLETED. JARA EMPTIED. NO OTHER NEEDS AT THIS TIME. CALL LIGHT WITHIN REACH.
--- NOTE | 2022-07-05 18:51 | NUR ---
INFORMED BY MINI LAB OPERATOR THE FAMILY MEMBER REQUESTED AND SIGNED CONSENT FOR PICTURES TO BE TAKEN OF PENIS DUE TO URETHRAL EROSION. CALLED DAUGHTER LESLIE TO CLARIFY REQUEST, WHO STATES HER CONCERN OF CARE PT RECEIVED AT NURSING FACILITY. EXPLAINED TO LESLIE URETHRAL EROSION A POSSIBLE COMPLICATION OF RESULTS ENGINEER CATHETERIZATION. LESLIE EXPLAINED HER UNDERSTANDING YET CONTINUES TO REQUEST PICTURES.
--- NOTE | 2022-07-05 19:47 | NUR ---
REPORT RECEIVED FROM DAY SHIFT RN. PT LYING IN BED WITH EYES OPEN. ANSWERS SIPMPLE YES/NO QUESTIONS. DENIES NEEDS AT THIS TIME. WHITE BOARD UPDATED. CALL LIGHT IN REACH.
--- NOTE | 2022-07-05 21:30 | NUR ---
PT AWAKE IN BED VISITING WITH SON. EVENING ASSESSMENT COMPLETE. PT AGREED TO TAKE ONE OF THE SCHEDULED STOOL SOFTENERS. REFUSED THE OTHER. NO SWALLOWING ISSUES NOTED. PT DENIES PAIN OR NAUSEA. IVF INFUSING WNL. PT REPOSITIONED IN BED WITH 2PA WITH PILLOWS. JARA PATENT WITH YELLOW URINE. JARA CARE COMPLETE. ORAL CARE DONE BY STAFF. BUE EDEMA NOTED, ELEVATED ON PILLOWS. HEEL PROTECTORS IN PLACE. PT/FAMILY DENY QUESTIONS OR CONCNERS. SON TO SPEND THE NIGHT. COUCH MADE UP FOR HIM.
--- NOTE | 2022-07-06 00:20 | NUR ---
PT AWAKE IN BED. REPOSITIONED WITH PILLOWS. AGREES HE IS COMFORTABLE. OFFERED SIPS OF WATER, PT REFUSED. SOB ASLEEP ON COUCH. DENIES NEEDS.
--- NOTE | 2022-07-06 03:00 | NUR ---
PT RESTING IN BED WITH EYES CLOSED. RESPIRATIONS EVEN. REPOSITIONED WITH PILLOWS. NEW BAG IVF INFUSING WNL. JARA PATENT WITH YELLOW URINE. FAMILY IN ROOM. CALL LIGHT IN REACH. BED ALARM FOR SAFETY.
--- NOTE | 2022-07-06 06:00 | NUR ---
PT RESTING WITH EYES CLOSED. AWAKENS TO VOICE. VS AND I&O COMPLETE. 2PA TO REPOSITION WITH PILLOWS. IV ABX INFUSING WNL. JARA PATENT WITH QS YELLOW URINE. PT DENIES PAIN OR NAUSEA. DENIES NEEDS. CALL LIGHT IN REACH. FAMILY IN ROOM.
--- NOTE | 2022-07-06 08:50 | NUR ---
MORNING ASSESSMENT COMPLETE. PT RESTING IN BED WITH EYES CLOSED, RESPONDS TO SIMPLE QUESTIONS WITH A YES OR NO. WILL NOT OPEN EYES. PT REFUSES ORAL MEDICATIONS AT THIS TIME. WILL ATTEMPT AGAIN. PT TURNED TO BACK. SON SLEEPING AT BEDSIDE. JARA DRAINING CLEAR YELLOW URINE. BUE EDEMATOUS, ELEVATED ON PILLOWS. IV'S FLUSHED AND PATENT. CALL LIGHT IN REACH, BED ALARM ON.
--- NOTE | 2022-07-06 09:46 | NUR ---
PT RESTING IN BED WITH EYES CLOSED, RESPIRATIONS EVEN AND UNLABORED. SON AT BEDSIDE. CALL LIGHT IN REACH AND BED ALARM ON.
--- NOTE | 2022-07-06 10:10 | NUR ---
PATIENT IN BED RESTING WITH EYES CLOSED. TRIED TO GET PATIENT TO TAKE A DRINK OR BITE OF FOOD AND PATIENT WOULDNT OPEN MOUTH. FAMILY IN ROOM. VITALS AND I&O'S CHARTED. CALL LIGHT IN REACH. NO FURTHER NEEDS AT THIS TIME.
--- NOTE | 2022-07-06 10:21 | NUR ---
PT LYING IN BED WITH EYES CLOSED, RESPONDS WITH SHAKING HEAD WHEN ASKED IF HE COULD WAKE TO TAKE MEDICATIONS. PT WILL NOT OPEN EYES, OR ATTEMPT DRINKS OF WATER OR TAKE BITES OF FOOD AT THIS TIME.
--- NOTE | 2022-07-06 10:39 | NUR ---
NOTIFIED BY AUTOMOBILE DRIVERS THAT PT COMPLAINS OF CHEST PAIN. DR BARBOSA NOTIFIED. EKG ORDERED 1041 BP 141/73(90), HEART RATE 88, O2 SAT 97% 1042 RT IN ROOM FOR EKG ASPIRIN GIVEN - SEE MAR
--- NOTE | 2022-07-06 12:48 | NUR ---
PT AWAKE WITH EYES OPEN IN BED. STATES HIS PAIN HAS IMPROVED. PT REFUSES TO EAT LUNCH AT THIS TIME. LUNCH REMAINS AT BEDSIDE, ALONG WITH ENSURE. SPOUSE AT BEDSIDE. PT DENIES NEEDS AT THIS TIME.
--- NOTE | 2022-07-06 13:45 | NUR ---
PT AWAKE IN BED WITH EYES OPEN, ASKED IF HE'D LIKE TO EAT, PT STATED "NO" TO MULTIPLE OPTIONS, TOOK DRINKS OF ENSURE. PT DENIES FURTHER NEEDS AT THIS TIME. CALL LIGHT IN REACH. SPOUSE AT BEDSIDE.
--- NOTE | 2022-07-06 13:49 | NUR ---
PATIENT IN BED RESTING WITH EYES CLOSED. VITALS AND I&O'S CHARTED. FAMILY IN ROOM. CALL LIGHT IN REACH. NO FURTHER NEEDS AT THIS TIME.
--- NOTE | 2022-07-06 15:18 | NUR ---
PT LYING AWAKE IN BED, VISITING WITH DAUGHTER AND SPOUSE. DENIES PAIN OR NEEDS AT THIS TIME. DAUGHTER ASSISTING PT WITH DRINKING WATER AND ENSURE. CALL LIGHT IN REACH.
--- NOTE | 2022-07-06 19:30 | NUR ---
REPORT RECEIVED FROM DAY SHIFT RN. PT LYING IN BED WITH EYES CLOSED. FAMILY IN ROOM. DENIES NEEDS. WHITE BOARD UPDATED. CALL LIGHT IN REACH.
--- NOTE | 2022-07-06 20:57 | NUR ---
EVENING ASSESSMENT COMPLETE. PT AGREEABLE TO TAKE PO ABX AND STOOL SOFTENER WITH SIPS OF WATER. NO SWALLOWING ISSUES NOTED. PT REFUSED OTHER MEDS. REPORTS NAUSEA. PRN FOR N/V ADMIN PER EMAR. PT DENIES PAIN. REPOSITIONED WITH 2PA. JARA PATENT WITH YELLOW URINE. JARA CARE COMPLETE. FACE WASHED. PT MOSTLY WITH EYES CLOSED, WILL RESPOND TO SIMPLE QUESTIONS. ABLE TO FOLLOW COMMANDS AND MINIMALLY ASSIST WITH CARES. FAMILY LEFT FOR THE EVENING. BED ALARM FOR SAFETY. CALL LIGHT IN REACH.
--- NOTE | 2022-07-06 22:44 | EKG ---
[facility] [address] [facility] [place] [address] Signed Sinus rhythm with premature atrial complexes Right bundle branch block Abnormal ECG When compared with ECG of 03-JUL-2022 21:57, premature atrial complexes are now present T wave inversion more evident in Anterior leads Confirmed by ATIF BARBOSA MD ([id number]) on 07/06/2022 10:44:08 PM Electronically Signed By: ATIF BARBOSA MD 07/06/22 2244 PATIENT NAME: NOVA HERNANDEZ Electrocardiogram DATE OF : 43 PHYSICIAN: ATIF BARBOSA MD REPORT #: [id number] REPORT IS CONFIDENTIAL AND NOT TO BE RELEASED WITHOUT AUTHORIZATION
--- NOTE | 2022-07-06 23:46 | NUR ---
PT AWAKE IN BED. CONTINUED HICCUPS NOTED. SIPS OF WATER PROVIDED. PT DENIES PAIN OR NAUSEA. 2PA TO REPOSITION IN BED. PT DENIES FURTHER NEEDS. CALL LIGHT IN REACH.
--- NOTE | 2022-07-07 02:00 | NUR ---
PT RESTING IN BED WITH EYES CLOSED. RESPIRATIONS EVEN. CALL LIGHT IN REACH. BED ALARM FOR SAFETY.
--- NOTE | 2022-07-07 04:30 | NUR ---
PT RESTING WITH EYES CLOSED. AWAKENS TO VOICE. ANSWERS QUESTIONS APPROPRIATELY. REPOSITIONED WITH PILLOWS. PT ABLE TO FOLLOW COMMANDS AND PARTICIPATE WITH CARES. REFUSED WATER WHEN OFFERED. CONTINUES TO HAVE HICCUPS WHEN AWAKE. DENIES NEEDS. CALL LIGHT IN REACH.
--- NOTE | 2022-07-07 06:43 | NUR ---
VS AND I&O COMPLETE. PT REPOSITIONED WITH PILLOWS. JARA PATENT WITH QS YELLOW URINE. PT AWAKE AND TALKING. REPORTS HE IS FEELING BETTER THIS AM. DENIES NEEDS. CALL LIGHT IN REACH.
--- NOTE | 2022-07-07 07:30 | NUR ---
THIS RN RECEIVED SHIFT REPORT FROM JAMAICA CROCKER. PATIENT RESTING QUIETLY ON HIS RIGHT SIDE, EYES CLOSED, RESPIRATIONS ARE REGULAR AND EVEN, AND CALL LIGHT IS IN REACH. PATIENT HAS NO NURSE CARE NEEDS AT THIS TIME.
--- NOTE | 2022-07-07 08:20 | NUR ---
PT IN BED. PT DECLINED WARM WASH CLOTH. PT REPOS. TO R SIDE BY 2 CNAS. NO FURTHER NEEDS AT THIS TIME. CALL LIGHT WITHIN REACH.
--- NOTE | 2022-07-07 09:15 | NUR ---
THIS RN IN TO SEE PATIENT. PATIENT'S IS AT BEDSIDE AND PATIENT'S SON HAS JUST ARRIVED. PATIENT DENIES PAIN OR NAUSEA AT THIS TIME. PATIENT'S AFFECT IS FLAT AND PATIENT SEEMS WITHDRAWN AND SLOW TO RESPOND. PATIENT REFUSED ALL AM MEDS AND CARE, BUT PATIENT'S TALKED HIM INTO TAKING HIS PILLS WITH APPLESAUCE AND HE DID TAKE A BITE OF EGGS FOR ME, BUT REFUSED TO TAKE ANYTHING ELSE ORALLY. VS ERIBERTO ADHIKARI AT THIS TIME. PATIENT HAD NO OTHER CARE NEEDS FROM THIS RN AT THIS TIME AND PATIENT'S FAMILY ALSO DENIED ANY CURRENT NEEDS. CALL LIGHT IS IN REACH.
--- NOTE | 2022-07-07 09:15 | NUR ---
DISCUSSION WITH DR. BARBOSA REGARDING CONCERNS FROM THE PATIENTS FAMILY OVER THE WEEKEND. PATIENT FAMILY IS CONCERNED THAT THE PATIENT HAS NOT BEEN RECVING GOOD CARE AT THE FACILITY AND THEY WISH TO SPEAK WITH CASE MANAGEMENT REGARDING DISCHARGE. UPDATE PER AM MEETING PATIENT MAY BE READY FOR DISCHARGE TODAY.
--- NOTE | 2022-07-07 10:34 | NUR ---
PATIENT'S SON CALLED FROM ROOM AND SAYS THE PATIENT IS NAUSEATED. 4MG SIVP ZOFRAN GIVEN. PATIENT'S SON IS GOING TO GO HOME FOR AWHILE, BUT PATIENT'S REMAINS AT BEDSIDE. CALL LIGHT IS IN REACH.
--- NOTE | 2022-07-07 11:00 | NUR ---
INTO PATIENT ROOM. PATIENT LAYING IN BEDS WITH EYES CLOSED. IT APPEARS IF THE PATIENT HAS HICCUPS. PATIENTS YENNIFER AT THE BESIDE. DISCUSSED WITH YENNIFER THEIR CONCERNS ABOUT THE PATIENTS CARE. YENNIFER STATES THEY HAVE ATTEMPTED TO SPEAK WITH THE NURSING STAFF REGARDING THE ISSUES, BUT FEEL THAT NOTHING CHANGES. WE DISCUSSED THAT THE FAMILY IS UNABLE TO CARE FOR THE PATIENT AT HOME. PATIENT, SON SHANEKA AND DAUGHTER LESLIE ATTEMPT TO CHECK ON THE PATIENT OFTEN. PATIENT STATES SHE WOULD PREFER THE PATIENT NOT RETURN TO [facility]. DISCUSSED THAT THEY COULD CONSIDER TRANSFERRING THE PATIENT TO ANOTHER SNF, BUT MOST DO NOT HAVE BED AVAILABILITY AT THIS TIME UNFORTUNETLY. THE FAMILY WOULD ALSO LIKE THE PATIENT TO STAY LOCAL SO THEY CAN VISIT. ADVISED YENNIFER TO SPEAK WITH SOMEONE IN ADMINISTRATION AT [facility] ABOUT THEIR CONCERNS. THIS RN ALSO ADVISED THAT THE PATIENT IS NEARING DISCHARGE AND WE WOULD LIKE TO BE ABLE TO SEND THE PATIENT BACK TO [facility]. YENNIFER REQUEST SHE TALK THINGS OVER WITH HER DAUGHTER LESLIE.
--- NOTE | 2022-07-07 11:59 | NUR ---
CHECKED IN WITH PATIENT . SHE STATES SHE HAD CALLED LESLIE AND LESLIE IS REQUESTING TO SPEAK TO CASE MANAGEMENT PRIOR TO DISCHARGE. CONTACT INFORMATION GIVEN, WILL AWAIT LESLIE'S CALL.
--- NOTE | 2022-07-07 12:15 | NUR ---
THIS RN IN TO CHECK ON PATIENT. PATIENT ASLEEP WHEN I ENTERED THE ROOM. WHILE TALKING TO PATIENT'S PATIENT WOKE UP AND HIS HICCUPS CAME BACK AND HE INFORMED ME HE WAS NAUSEATED AGAIN, SO 12.5MG IV PHENERGAN IN 20MLS NS GIVEN PER PROTOCAL. PATIENT HAS GONE BACK TO SLEEP AND HICCUPS HAVE STAPPED AT THIS TIME. CW IS IN TALKING WITH PATIENT'S AT THIS TIME. CALL LIGHT IS IN REACH.
--- NOTE | 2022-07-07 12:15 | NUR ---
PT LAYING IN BED. PT SLEEPING. NO FURTHER NEEDS. CALL LIGHT WITHIN REACH.
[2022-07-07] MEDS ORDERED: CIPROFLOXACIN250 MG PO (12:17)
--- NOTE | 2022-07-07 13:29 | NUR ---
IN TO TRY AND GET PATIENT AWAKE AND TO EAT SOME LUNCH. PATIENT RESPONEDED WITH "LEAVE ME ALONE" AND "NO" TO ANY QUESTIONS ABOUT EATING OR BEING REPOSITIONED. TELE TAKEN OFF UPON DR. LAZARO. VITALS AND I&O'S CHARTED. PATIENT REPOSITIONED AND ASKED AGAIN IF THERE WAS ANYTHING HE WOULD WANT TO EAT OR DRINK, PATIENT SIAD NO AGAIN. CALL LIGHT IN REACH. NO FURTHER NEEDS AT THIS TIME.
--- NOTE | 2022-07-07 14:16 | NUR ---
PT IS ASLEEP, GIVEN MEDS FOR NAUSEA. VISITED WITH HIS -STRUGGLING WITH PLACEMENT. EXPRESSED ANGER AT CARE (LACK OF) AT PREVIOUS FACILITY. LET HER VENT, HAD PRAYER AND WILL FOLLOW
--- NOTE | 2022-07-07 14:53 | NUR ---
PATIENT'S DAUGHTER CAME OUT OF ROOM AND REQUESTED NAUSEA MEDICATION FOR THE PATIENT. THIS RN INFORMED PATIENT WAS NOT DUE FOR ANY MORE NAUSEA MEDICATION YET. ORDERED AND EXTRA DOSE OF 4MG ZOFRAN, WHICH THIS RN GAVE. PATIENT ALSO AGREED TO TAKE HIS LACTULOSE AND HE WAS ABLE TO TAKE THAT AND A FEW BITES OF PUDDING HIS FAMILY BROUGHT IN THAT THE PATIENT LIKES. MORE PUDDING LABELED AND DOWN IN THE PATIENT FRIDGE. AFTERNOON ASSESSMENT COMPLETE. PATIENT HAS NO OTHER CARE NEEDS AT THIS TIME AND WAS JUST TURNED BY THE [employer] HELPER[employer]S. CALL LIGHT IS IN REACH.
--- NOTE | 2022-07-07 17:23 | NUR ---
THIS RN IN TO SEE PATIENT AND HE DOES NOT WANT TO EAT ANYTHING. PATIENT DENIES ANY NEEDS HE JUST WANTS TO SLEEP. PATIENT'S FRUSTRATED PATIENT WON'T EAT. INFORMED I WOULD BE HOOKING PATIENT UP TO IV FLUIDS SOON I GET IT FROM THE PHARMACY. PATIENT HAS NO OTHER CARE NEEDS AT THIS TIME. CALL LIGHT IS IN REACH.
--- NOTE | 2022-07-07 18:01 | NUR ---
THIS RN IN TO START IV FLUIDS. D5 1/2 NS WITH 20KCL UP AND INFUSING AT 125MLS/HR. PATIENT IS RESTING QUIETLY, EYES CLOSED, RESPIRATIONS ARE REGULAR AND EVEN, AND CALL LIGHT IS IN REACH. PATIENT'S IS GETTING READY TO GO HOME FOR THE EVENING. PATIENT REPOSITIONED TO HIS RIGHT SIDE WITH PILLOWS. CALL LIGHT IS IN REACH.
--- NOTE | 2022-07-07 18:25 | NUR ---
PT LAYING IN BED. PT REPOSITIONED TO RIGHT SIDE BY 2 CNAS. VITALS AND I'S AND O'S TAKEN. NO FURTHER NEEDS AT THIS TIME. CALL LIGHT WITHIN REACH.
--- NOTE | 2022-07-07 19:55 | NUR ---
REPORT RECEIVED FROM DAY SHIFT RN. PT LYING IN BED WITH EYES CLOSED. RESPIRATIONS EVEN. IVF INFUSING WNL. JARA PATENT WITH YELLOW URINE. WHITE BOARD UPDATED. CALL LIGHT IN REACH.
--- NOTE | 2022-07-07 22:15 | NUR ---
EVENING ASSESSMENT COMPLETE. PT REFUSED ALL SCHEDULED MEDS BUT DID AGREE TO TAKE ABX WITH WATER. PT MOSTLY WITH EYES CLOSED AND NOT RESPONDING TO QUESTIONS OR ASSIST WITH CARES. INCONTINENT OF SMALL AMOUNT SOFT BM. SHARDA CARE DONE. CLEAN BRIEF PLACED. JARA CARE DONE. PT REPOSITIONED WITH PILLOWS. HEEL PROTECTORS IN PLACE. WARM BLANKETS PROVIDED. PT DOES NOT VERBALIZE FURTHER NEEDS. CALL LIGHT IN REACH.
--- NOTE | 2022-07-08 00:30 | NUR ---
PT REPOSITIONED WITH PILLOWS. HEEL PROTECTORS IN PLACE. DENIES NEEDS. CALL LIGHT IN REACH.
--- NOTE | 2022-07-08 01:24 | NUR ---
2 PA. THIS BURGL[employer] ALARM MECHANIC AND LUMBER STRAIGHTENED CINDA CLEANED PATIENT FROM LOOSE BM. PATIENT STATED "I WOKE UP AND FELT I HAVE BM".
--- NOTE | 2022-07-08 01:35 | NUR ---
PT REPORTS NAUSEA. PRN FOR N/V ADMIN PER EMAR. NEW BAG IVF INFUSING WNL. HOB ELEVATED. PT DENIES FURTHER NEEDS. CALL LIGHT IN REACH.
--- NOTE | 2022-07-08 03:15 | NUR ---
PT RESTING IN BED WITH EYES CLOSED. RESPIRATIONS EVEN. CALL LIGHT IN REACH. PT IN VIEW OF NURSES STATION.
--- NOTE | 2022-07-08 06:28 | NUR ---
PT AWAKE IN BED. ALERT AND TALKATIVE. VS AND I&O COMPLETE. PT REPOSITIONED WITH PILLOWS. IVF INFUSING WNL. DENIES PAIN. REPORTS NAUSEA AND HICCUPS. PRN FOR N/V ADMIN PER EMAR. SIPS OF WATER PROVIDED. DENIES NEEDS. CALL LIGHT IN REACH.
--- NOTE | 2022-07-08 07:30 | NUR ---
SHIFT REPORT GIVEN TO THIS RN BY JAMAICA CROCKER. PATIENT RESTING QUIETLY IN HIGH FOWLERS POSITION, EYES CLOSED, RESPIRATIONS ARE REGULAR AND EVEN, AND CALL LIGHT IS IN REACH. PATIENT HAS NO NURSE CARE NEEDS AT THIS TIME.
--- NOTE | 2022-07-08 08:11 | NUR ---
THIS RN IN TO SEE PATIENT WHO IS MUCH MORE ALERT AND INTRACTIVE THIS AM THEN ALL OF YESTERDAY AND PATIENT IS HUNGRY AND ATE SOME APPLESAUCE AND TAPIOCA PUDDING AND TOOK ALL HIS AM PO MEDS. PATIENT WAS FEELING A LITTLE ACHY AND PO TYLENOL GIVEN. PATIENT HAS NO OTHER CARE NEEDS AT THIS TIME. CALL LIGHT IS IN REACH.
--- NOTE | 2022-07-08 09:30 | NUR ---
Pt discussed in IDT. Pt medically cleared for dc. Per Dr. Patel family are not ready for dc. I will discuss needs and let the daughter know plan is for pt to dc today.
--- NOTE | 2022-07-08 09:44 | NUR ---
THIS RN IN AND HUNG NEW MAIN LINE IV. NEELIMA HANKS IN DOING VS AND I+O. PATIENT TURNED TO HIS LEFT SIDE WITH PILLOWS. CALL LIGHT IN REACH. PATIENT HAS NO OTHER CARE NEEDSA AT THIS TIME AND DENIES PAIN.
--- NOTE | 2022-07-08 10:30 | NUR ---
Pt was discussed in [address]. Pt is ready for dc, family are not ready and have many concerns. Pt has questions.
--- NOTE | 2022-07-08 10:40 | NUR ---
In to the room and spoke with pt, , and daughter, Chelsey. UPdated pt is medically cleared for return to SNF today. states she is very upset with [facility]. I asked if she has spoken with the law firm administrator and she has not. DIscussed there are other avenues, she could call the Ombudsman or the APS if she feels he is unsafe. She states she would like him placed in another SNF, but they do not want to have to travel out of town. Let them know there is not another SNF in [place]. They could try for [facility] as take bedbound or 2 person assist pts. No one else does in town. We also discussed SNFS in our area and there are 0 beds open. Let them know, pt needs to return to SNF. They have CM and they will assist them to move to another SNF when a beds open, if that is there wish. states she just wants them to provide better care. Again discussed the options above and gave her the phone number for the ombudsman for LTC. Pt's daughter Jaz, called and mom let her know I was in the room visiting with them. She asks for a copy of the chart. I let them all know, this is something they will need to get from medical recoreds. Family are stating pt was injured from his catheter by the SNF. I viewed the pictures in the chart and pt does have a split inthe end of his penis. It is not open or bleeding. Let the family know, this is not uncommon for male pts with buttermilk drier operator catheters. DAughter Jaz, is on her way in.
--- NOTE | 2022-07-08 10:45 | NUR ---
Texted ES at [facility] and asked if they can accept this pt today and what time. He states whenever we can arrange EMS transport. UPdated Dr. Patel and gave her the SNF orders. 1145 Daughter Jaz arrives. She states she is the medical office technologist. I encouraged her to obtain a POA as she states she pierre not have anything in writing and has been having difficulty trying to manage her dads medical. I updated her to earlier conversation. Let her know pt is medically ready for dc and will need to return to [facility]. She also states they do not funds placement into an S[facility]IOR LIVING or residential care. Let her know CM there will help them find another placement, she states they really don't want to move him. Brother was in the ER and viewed the split in pts penis and was very upset as he felt it had been caused by the staff at [facility]. I again assured her this is not uncommon for males with alf catheters. She also states they are concerned about pt declining, not getting out of bed, not wanting to eat. We discussed this can be a natural progression with dementia. They want staff to force pt to get out of bed and to eat. I let her know, they cannot do this if the pt refuses. I strongly encouraged them to speak with Yasmani, the social welfare administrator at [facility] and to have family member there daily. After our conversation, family are in agreement for pt to return to [facility] by EMS. When I receive orders, I will schedule EMS for transport.
--- NOTE | 2022-07-08 11:22 | NUR ---
PATIENT VISITING WITH 3 FEMALE FAMILY MEMBERS IN HIS ROOM. DAUGHTER CAME OUT AND SAID SHE HAD SEVERAL MISSED CALLS FROM . THIS RN HAS JUST INFORMED ZACH FROM THAT THE FAMILY IS WANTING TO SPEAK WITH HER, AND SHE WILL BE IN SOON SHE FINISHES WITH THE PATIENT SHE IS CURRENTLY WORKING WITH.
--- NOTE | 2022-07-08 11:26 | NUR ---
HAROLDO AT PT'S BS. PT AWAKE, WAVED WHEN HE SAW ME. ABLE TO PARTICIPATE IN CONVERSATION. FEELING BETTER TODAY. VISIT PLEASANT, GAVE G.POST AND BLESSING. WILL FOLLOW NEEDED
--- NOTE | 2022-07-08 12:01 | NUR ---
ZACH IS NOW IN THE ROOM TALKING WITH PATIENT AND HIS FAMILY.
--- NOTE | 2022-07-08 12:14 | NUR ---
PATIENT AWAKE AND EATING LUNCH WITH ASSISTANCE FROM HIS . PATIENT IS VISITING WITH AND DAUGHTER. SS INSULIN COVERAGE 1UNIT GIVEN. PATIENT HAS NO OTHER NURSE CARE NEEDS AT THIS TIME. CALL LIGHT IS IN REACH.
--- NOTE | 2022-07-08 13:20 | NUR ---
Received orders for SNF, completed PASSR, RX, emar printed. All faxed to ES at T. Called and scheduled EMS for 2:15. All papers placed in envelope with transport form and face sheet. Given to fire extinguisher charger.
--- NOTE | 2022-07-08 13:59 | NUR ---
PATIENT IS BEING DC'DBACK TO [place]. DRY ATTENDS ON. IV'S DC'D INTACT. VS ARE STABLE. JARA HAS BEEN EMPTIED. PATIENT DENIES ANY PAIN OR NAUSEA. AWAITING EMS NON-EMERGENT TRANSPORT TO TAKE PATIENT BACK TO [facility]. CALL LIGHT IN REACH AND BELONGINGS GATHERED TO GO BACK. DC PACKET AT BEDSIDE.
--- NOTE | 2022-07-08 14:25 | NUR ---
PATIENT DC'D TO [facility] WITH NON-EMERGENT AMBULANCE TRANSPORT. VS STABLE ON DC AND ALL BELONGINGS SENT WITH PATIENT. REPORT CALLED TO JAMAICA MILLER AT [facility].
== END 2022-07-08 14:25 | DRG 698 ==
LOC: ED 20:40 → CCU 07-04 00:49 → MS 07-05 14:30
PROVIDERS: ADMIT Internal Medicine; ATTEND Internal Medicine
PROC: 3E03329 Introduction of Other Anti-infective into Peripheral Vein, Percutaneous Approach (ICD-10-PCS; principal; 2022-07-04)
PROC: 3E033XZ Introduction of Vasopressor into Peripheral Vein, Percutaneous Approach (ICD-10-PCS; 2022-07-04)
DX: T83.511A Infection and inflammatory reaction due to indwelling urethral catheter, initial encounter (principal); A41.59 Other Gram-negative sepsis; G93.41 Metabolic encephalopathy; R65.21 Severe sepsis with septic shock; N39.0 Urinary tract infection, site not specified; R62.7 Adult failure to thrive; D75.1 Secondary polycythemia; E11.9 Type 2 diabetes mellitus without complications; I11.0 Hypertensive heart disease with heart failure; Z20.822 Contact with and (suspected) exposure to COVID-19; I50.9 Heart failure, unspecified; F39 Unspecified mood [affective] disorder; R33.9 Retention of urine, unspecified; E83.42 Hypomagnesemia; G89.4 Chronic pain syndrome; N40.0 Benign prostatic hyperplasia without lower urinary tract symptoms; I25.10 Atherosclerotic heart disease of native coronary artery without angina pectoris; Z95.1 Presence of aortocoronary bypass graft; Z87.891 Personal history of nicotine dependence; Z90.49 Acquired absence of other specified parts of digestive tract; Z74.01 Bed confinement status; Z88.8 Allergy status to other drugs, medicaments and biological substances; Z79.82 Long term (current) use of aspirin; Z79.899 Other long term (current) drug therapy; Z68.23 Body mass index [BMI] 23.0-23.9, adult; Y73.2 Prosthetic and other implants, materials and accessory gastroenterology and urology devices associated with adverse incidents
CPT/HCPCS: 36415; 51702; 70450; 71045; 74177; 80048; 80053; 81001; 83605; 83690; 83735; 84484; 85025; 85060; 86850; 86900; 86901; 87040; 87077; 87088; 87186; 87502; 93005; 93010; 99285-25; A9270; C9113; G0480; J1815; J2405; J2543; J2550; J3475; J3480; J7030; J7120; J7121; Q9967; U0003

== ENCOUNTER 2022-08-11 06:35 | Inpatient (IN) | payer MEDICARE, OTHER ==
[~2022-08-11] VITALS: Ht 177.8 cm; Wt 63.4 kg
[~2022-08-11 06:35] MED LIST changes: +AMITIZA24 MCG PO; +ANTI-ITCH28 G1 TOP; +CIPROFLOXACIN250 MG PO; +COLACE100 MG PO; +DRONABINOL5 MG PO; +ERYTHROMYCIN1 GM OU; +LACTULOSE10 GM/15 M PO; -LACTULOSE10 GM/151 PO; +TOPROL XL50 MG PO
--- OUTSIDE RECORDS SUMMARY | 2022-08-11 06:38 | XMS ---
PreManage Notification: NOVA HERNANDEZ Security Manager Corporate Events No recent Security Events currently on file CRITERIA MET - PDMP CARE PROVIDERS KAVON CROOKS Business Development Officer Current MARIO ALBERTO URENA F PHONE: [phone] TYREL SIN Internal Medicine Current PHONE: [phone] Natalee Bernstein Tong Carrier/Battery Tester And Repairer 01/21/2022-Current PHONE: [phone] JADA ALCARAZ Nurse Practitioner Current PHONE: [phone] ELSA WINKLER Family Medicine 07/05/2020-Current PHONE: Unknown KHURRAM MCGARRY Nurse Practitioner: Family Current PHONE: Unknown JAZMIN VALDIVIA Internal Medicine Current PHONE: [phone] PHOEBE MCBRIDE Nurse Practitioner Current PHONE: [phone] ALE FLORES I. Physician Peanut Separator Current PHONE: Unknown CRISTIANA LEI Nurse Practitioner Current PHONE: Unknown CANDACE BOYLE Nurse Practitioner Lorin VIVAR PHONE: [phone] THOR Nurse Practitioner Lorin ERWIN PHONE: [phone] RADHA [facility] Nursing [facility] Current PHONE: Unknown MARGARETTE [facility] Current PHONE: [phone] CONSTANTIN PAYTNO Physician Peanut Separator Current PHONE: Unknown Eduardo has no Care Guidelines for this patient. Care History Medical/Surgical 07/05/2020 [facility] - Patient is currently established with [facility]. If patient is seen in the ED during business hours. Please contact CHWs at [facility]. Care Recommendation: If this patient has had [...] care. E.D. VISIT COUNT (12 MO.) 3 [facility]. TOTAL 3 NOTE: Visits indicate total known visits. ED/UCC VISIT TRACKING (12 MO.) 08/11/2022 06:36 [facility] TYPE: Emergency COMPLAINT: - SEIZURE 07/03/2022 20:41 [facility] TYPE: Emergency COMPLAINT: - ALTERED LOC 08/30/2021 22:03 [facility] TYPE: Emergency COMPLAINT: - ALTERED LOC INPATIENT VISIT TRACKING (12 MO.) 07/04/2022 00:[address] [facility] TYPE: Medical Surgical COMPLAINT: - SEPSIS, URINARY TRACT INFECTION DIAGNOSES: - Adult failure to thrive - Atherosclerotic heart disease of [place] coronary artery without angina pectoris - Acquired absence of other specified parts of digestive tract - Heart failure, unspecified - Unspecified mood [affective] disorder - Atherosclerotic heart disease of [place] coronary artery without angina pectoris - Hypomagnesemia - Urinary tract infection, site not specified - Hypertensive heart disease with heart failure - Unspecified mood [affective] disorder - Allergy status to other drugs, medicaments and biological substances - Presence of aortocoronary bypass graft - Contact with and (suspected) exposure to COVID-19 - Benign prostatic hyperplasia without lower urinary tract symptoms - Presence of aortocoronary bypass graft - Urinary tract infection, site not specified - Allergy status to other drugs, medicaments and biological substances - Contact with and (suspected) exposure to COVID-19 - Body mass index [BMI] 23.0-23.9, adult - Personal history of nicotine dependence - Other Gram-negative sepsis - Chronic pain syndrome - Chronic pain syndrome - Prosthetic and other implants, materials and accessory gastroenterology and urology devices associated with adverse incidents - Bed confinement status - Type 2 diabetes mellitus without complications - Infection and inflammatory reaction due to indwelling urethral catheter, initial encounter - Heart failure, unspecified - half-way (current) use of aspirin - Acquired absence of other specified parts of digestive tract - Other bilingual social worker (current) drug therapy - Type 2 diabetes mellitus without complications - Body mass index [BMI] 23.0-23.9, adult - Other Gram-negative sepsis - Metabolic encephalopathy - Sepsis, unspecified organism - Severe sepsis with septic shock - Retention of urine, unspecified - Bed confinement status - Benign prostatic hyperplasia without lower urinary tract symptoms - Hypertensive heart disease with heart failure - Severe sepsis with septic shock - Adult failure to thrive - Retention of urine, unspecified - Metabolic encephalopathy - Other prison (current) drug therapy - Hypomagnesemia - vp client services (current) use of aspirin - Secondary polycythemia - Personal history of nicotine dependence - Secondary polycythemia 08/30/2021 22:04 [facility] [place] TYPE: Observation COMPLAINT: - AKANKSHA, DEMENTIA DIAGNOSES: - Metabolic encephalopathy - Allergy status to other drugs, medicaments and biological substances - Acute kidney failure, unspecified - Contact with and (suspected) exposure to COVID-19 - Enterococcus as the cause of diseases classified elsewhere - Type 2 diabetes mellitus without complications - Unspecified dementia without behavioral disturbance - Heart failure, unspecified - Personal history of nicotine dependence - Hypertensive heart disease with heart failure - Urinary tract infection, site not specified [email or web address]
[2022-08-11] MEDS ORDERED: AMITIZA24 MCG PO (08:10)
--- NOTE | 2022-08-11 08:25 | NUR ---
BEDSIDE REPORT RECEIVED FROM QUILT MAKER. THIS RN IN ROOM TO TRANSPORT PT TO CCU. PT'S FEELING ILL, NOW CHECKING INTO THE ER. PT SON WITH PT AT TIME OF TRANSPORT TO THE ER. PT ARRIVED TO CCU ON CARDAIC MONITOR AND ON 15 L NRB MASK. LEVOPHED INFUSING AT 13 (SEE FLOWSHEET). PT MOVED FROM STRETCHER TO BED WITH TWO STAFF AND SLIDER SHEET.
--- NOTE | 2022-08-11 09:00 | NUR ---
INITIAL ASSESSMENT COMPLETED. LEVOPHED TITRATED DOWN TO 6 MCG/ MIN. IV FLUIDS NOW INFUSING. OXYGEN TITRATED DOWN TO 6 L OM. PT NOT ALERT AND ORIENTED, NODDING YES AND NO IN RESPONSE TO SOME QUESTIONS. ALL RADIAL PULSES ARE STRONG. LUNGS SOUND DIMINISHED IN BILATERAL BASES. PT IS CACHECTIC, BOWEL TONES HYPOACTIVE. JARA CATHETER PRODUCING SMALL AMOUNTS OF CLOUDY, FOUL SMELLING URINE. SKIN GROSSLY INTACT, SLIGHT REDNESS TO COCCYX AREA.
--- NOTE | 2022-08-11 09:46 | NUR ---
LEVOPHED TITRATED OFF AT 0915 BUT PUT BACK ON AT 2 MCG/MIN AT THIS TIME TO SUSTAIN BLOOD PRESSURE. SUPPLUMENTARY O2 INCREASED TO 8 L AT THIS TIME. PT IS ASLEEP, RESPIRATIONS EVEN AND UNLABORED. CALL LIGHT WITHIN REACH AND PT SON AT BEDSIDE. WILL CONTINUE TO CLOSELY MONITOR.
--- NOTE | 2022-08-11 10:16 | NUR ---
DR JONAS IN ROOM TO ASSESS PT. PER MD ORDER, LR NOW RUNNIGN AT 1000 MLS/HR. URINE OUTPUT AT 15 MLS/ HR. LEVOPHED REMAINS AT 6 MCG/MIN. LACTIC ACID DRAWN OFF CENTRAL LINE AND SENT TO LAB. JADIEL SHANEKA AT BEDSIDE TO DISCUSS PLAN OF CARE WITH DR JONAS. ALL QUESTIONS ANSWRED AT THIS TIME. PLAN ESTABLISHED FOR A CT OF TGHE ABDOMEN.
--- NOTE | 2022-08-11 12:04 | NUR ---
IN ROOM FOR ASSESSMENT. IV MAGNESIUM NOW INFUSING ALONG WITH IVF. LEVOPHED AT 8 MCG/MIN. PT CALLING OUT AT TIMES MOVING ARMS, UNABLE TO ARTICULATE WORDS. HEART RATE IN THE 90S. URINE OUTPUT REMAINS POOR. OTHER ASSESSMENT FINDINGS UNCHANGED. SON REMAINS AT BEDSIDE. WILL CONTINUE TO CLOSELY MONITOR.
--- NOTE | 2022-08-11 12:11 | NUR ---
DR JONAS UPDATED ON PT POOR URINE OUTPUT, BLOOD PRESSURE, AND CURRENT LEVOPHED DRIP RATE. ORDERS RECEIVED TO INCREASE IVF WITH POTASSIUM TO 150 MLS/HR.
--- NOTE | 2022-08-11 12:50 | NUR ---
PT GIVEN TYLENOL SUPPOSITORY PER SONS REPORT THAT PT COMPLAINS OF A HEADACHE TO HIM. PT ONLY MOANS TO STAFF QUESTIONS. LEVOPHED TITRATED UP TO 10 MCG/MIN AT THIS TIME (SEE FLOWSHEET). PLACED BACK ON 4 L OM FOR SPO2 = 88% ON ROOM AIR. SON REMAINS AT BEDSIDE. WILL CONTINE TO MONITOR.
--- NOTE | 2022-08-11 14:00 | NUR ---
PTS URINE OUTPUT CONTINUES TO BE POOR. LEVOPHED CONTINUES TO BE TITRATED UP TO MAINTIAN PT'S MAP ABOVE 60. PT REPOSTIONED FOR COMFORT. SON REMAINS AT BEDSIDE. WILL CONTINUE TO MONITOR.
--- NOTE | 2022-08-11 16:00 | NUR ---
DR JONAS UPDATED ON PT'S CURRENT BLOOD PRESSURE, LEVOPHED INFUSION RATE, AND URINE OUTPUT. ORDERS RECEIVED. ALBUMINS AND LR BOLUS NOW INFUSING ALONG WITH LEVOPHED DRIP. WILL CONTINUE TO CLOSELY MONITOR.
--- NOTE | 2022-08-11 16:47 | NUR ---
ASSESSMENT COMPLETED. ALBUMIN DONE INFUSING. LR BOLUS CONTINUES TO INFUSE. FINE CRACKLES AUSCULATED IN THE LEFT LOWER AIR FIELD, ON PTS DEPENDENT SIDE. PT REPOSITIONED ON BOTH SIDES WITH PILLOWS UNDER EACH HIP.
--- NOTE | 2022-08-11 17:15 | NUR ---
CVP READING OF 5. BLOOD PRESSURE STILL IN THE 80S SYSTOLICALLY WITH MAPS IN THE 50S AT 20 MCG/MIN. URINE OUTPUT SCANT. DR JONAS UPDATED. NO NEW ORDERS AT THIS TIME.
--- NOTE | 2022-08-11 17:21 | NUR ---
medications reconciled using MARS from facility
--- NOTE | 2022-08-11 18:02 | EKG ---
[facility] [address] [place], [place] [address] Signed Poor data quality, interpretation may be adversely affected Normal sinus rhythm Low voltage QRS Incomplete right bundle branch block Possible Lateral infarct , age undetermined ST \T\ T wave abnormality, consider anterior ischemia Prolonged QT Abnormal ECG No previous ECGs available Confirmed by GIO JONAS MD ([id number]) on 08/11/2022 6:02:10 PM Electronically Signed By: GIO JONAS MD 08/11/221801 PATIENT NAME: NOVA HERNANDEZ Electrocardiogram DATE OF : 43 PHYSICIAN: GIO JONAS MD REPORT #: [id number] REPORT IS CONFIDENTIAL AND NOT TO BE RELEASED WITHOUT AUTHORIZATION
--- NOTE | 2022-08-11 18:23 | NUR ---
LEVOPHED AT 26 MCG/MIN AT THIS TIME. BLOOD PRESSURES REMAIN IN THE 80S SYSTOLICALLY, MAPS IN THE 50S. DR JONAS AWARE. SON SHANEKA HAS GONE HOME. PT RESTING ON 2 L SPO2 = 98%. RESPIRATIONS EVEN AND UNLABORED. WILL CONTINUE TO CLOSELY MONITOR.
--- NOTE | 2022-08-11 20:00 | NUR ---
BILATERAL EYES NOTED TO HAVE EDEMA ON THE EYE. PUPILS 2MM AND REACTIVE TO LIGHT.
--- NOTE | 2022-08-11 21:07 | NUR ---
PATIENT RESTING IN BED WITH EYE CLOSED. WITHDRAWS TO NOXIOUS STIMULI. SON AT BEDSIDE AND REPORTS PATIENTS BASELINE IS CONVERSIVE. PATIENT NOT ABLE TO VERBALLY RESPOND TO QUESTIONS. MOANS WITH MOVEMENT. JARA DRAINING DARK AZUCENA URINE. PATIENT HAS SMALL SCABS TO ENTIRE BODY IN VERIOUS STAGES OF HEALING. SON REPORTS PATIENT PICKS AT SKIN. RIGHT ANTERIOR FOREARM IS BRUISED, PRESENT ON ADMIT AND UNKOWN ORIGIN. JARA AND ORAL CARE PROVIDED. CVP ZEROED. REMAINS ON 2LPM VIA OXYMASK.
--- NOTE | 2022-08-11 22:05 | NUR ---
DR JONAS GIVEN UPDATE ON PATIENTS CONDITION. DECREASED URINE OUTPUT. VERBAL ORDER TO CHANGE IV LR FLUIDS FROM 125ML/HR TO 65MLS/HR.
--- NOTE | 2022-08-12 00:04 | NUR ---
PATIENT RESTING IN BED. FIDGETING WITH SHEETS. MOANS WITH STIMULATION.SON AT BEDSIDE. REMAINS ON LEVOPHED FOR PRESSURE SUPPORT.
--- NOTE | 2022-08-12 03:20 | NUR ---
PATINET LYING IN BED. JARA DRAINING TO BEDSIDE BAG. REMAINS ON LEVOPHED FOR PRESSURE SUPPORT. SON RESTING IN ROOM. REPOSITIONED FOOR COMFORT.
--- NOTE | 2022-08-12 05:35 | NUR ---
PATIENTS ATTENDS CHANGED. JARA CATH APPEARS TO BE LEAKING FOR PENIAL MALFORMATION. PATIENT REPOSITIONED. PATIENT MOANS WITH TURNS BUT NOT ABLE TO SPEAK WORDS.
--- NOTE | 2022-08-12 06:00 | NUR ---
CRITICAL LAB RESULTS CALLED TO DR JONAS. NEW ORDERS FOR BLOOD CULTURES TO BE REDRAWN. WBC 39.6 AND BC GROWTH OF GRAM NEGATIVE RODS.
--- NOTE | 2022-08-12 07:30 | NUR ---
REPORT RECIEVED. PATIENT SON IS IN ROOM.
--- NOTE | 2022-08-12 08:50 | NUR ---
Spoke with pts and son. She denies any needs, but asks for prayers. Declined offer of pastorial care to visit.
--- NOTE | 2022-08-12 09:30 | NUR ---
DR. JONAS HERE TO SEE PATIENT AND TALK WITH FAMILY MEMBERS. TOTAL IVF TO 125 ML/HR PER ORDERS. PATIENT REPOSITIONED TO RIGHT SIDE. UPON REPOSITIONING PATIENT SAT DOWN TO 86. O2 INCREASED TO 8 L OXYMASK. PATIENT MOANING. REMAINS ON LEVOPHED GTT AT 30 MCG/MIN. IVF INFUSING.
--- NOTE | 2022-08-12 10:00 | NUR ---
DR. JONAS BACK IN ROOM FAMILY MEMBERS WANT TO DISCUSS COMFORT MEASURES.
--- NOTE | 2022-08-12 10:05 | NUR ---
MONITORS DC'D, IVF DC'D, LEVOPHED GTT DC,D, O2 TO 2 L OXYMASK, COMFORT CARE ORDERED.
--- NOTE | 2022-08-12 10:15 | NUR ---
MORPHINE 8 MG IV GIVEN FOR RESP COMFORT WELL OVERALL COMFORT. FAMILY MEMBERS ARE AT BEDSIDE.
--- NOTE | 2022-08-12 10:30 | NUR ---
ATIVAN 1 MG IV GIVEN.
--- NOTE | 2022-08-12 10:57 | NUR ---
FAMILY MEMBERS ARE IN ROOM.
--- NOTE | 2022-08-12 12:00 | NUR ---
REPOSITIONED, DIAPHORTIC. FAMILY MEMBERS REMAIN IN ROOM.
--- NOTE | 2022-08-12 12:40 | NUR ---
MORPHINE OPERATING ENGINEER HUNG PER ORDERS. FAMILY MEMBERS EDUCATED.
--- NOTE | 2022-08-12 12:54 | NUR ---
PT BEING PLACED ON COMFORT MEASURES BY FAMILY. FAMILY PRESENT, GAVE COMFORT, P.QUILT GIVEN TO PT AND PRAYER OFFERED. WILL CONTINUE TO FOLLOW AND BE HERE FOR FAMILY NEEDED
--- NOTE | 2022-08-12 14:37 | NUR ---
AND ADULT CHILDREN PRESENT IN PT'S RM. PT NOT LABORING BREATHING, SEEMS COMFORTABLE-FAMILY AGREE. THEY HAVE DECIDED TO USE DENT MORTURY FOR FINAL ARRANGEMENTS. PT IS TO BE CREMATED AND BURIED IN [facility] ALONG WITH OTHER FAMILY. GAVE ENCOURAGEMENT AND BLESSING. WILL FOLLOW
--- NOTE | 2022-08-12 15:25 | NUR ---
PATIENT REPOSITIONED IN BED. NEW CHUK, BRIEF, AND DRAW SHEET PROVIDED. JARA AND ORAL CARE PROVIDED. FAMILY IN ROOM. NO OTHER NEEDS AT THIS TIME
--- NOTE | 2022-08-12 15:30 | NUR ---
REPORT TO MED-SURG, TO MED-SURG VIA BED.
--- NOTE | 2022-08-12 15:40 | NUR ---
RADHA RN FROM CCU IS TRANSFERING PATIENT TO THIS RN'S CARE. PATIENT AND FAMILY SITUATED IN RM#114. LIGHTING SET TO FAMILY'S PREFERENCE. CHECKED TO MAKE SURE CALL LIGHT IS WORKING. COMFORT CARE TRAY PRESENT AND STOCKED IN THE ROOM. EXTRA CHAIRS MOVED IN TO ACCOMIDATE FAMILY MEMBERS FOR SITTING. ADMITTING SUPERVISOR INFUSINFG AT 4MG/HR. PATIENT'S RESPIRATIONS ARE 16/MIN AT THIS TIME. PATIENT IS ON ROOM AIR. JARA DRAINING MINIMAL DARK URINE. FAMILY DENIES ANY CARE NEEDS AT THIS TIME AND WILL CALL FOR NEEDS OR CONCERNS. CALL LIGHT IS IN REACH.
--- NOTE | 2022-08-12 16:23 | NUR ---
THIS RN IN TO CHECK ON PATIENT AND FAMILY. IN TALKING WITH FAMILY AT THIS TIME. PATIENT'S RESPIRATIONS AR STILL 16/MIN. FINGERS AND TOES ARE TO COLD TO AUTISM TUTOR AN O2 SAT AT THIS TIME FAMILY HAD REQUESTED TO SEE WHAT IT WAS. FAMILY VERBALIZED UNDERSTANDING NOT BEING ABLE TO GET SAT. FAMILY DENIES ANY OTHER CARE NEEDS AT THIS TIME. CALL LIGHT IS IN REACH.
--- NOTE | 2022-08-12 17:22 | NUR ---
THIS RN RETURNING TO MED/SURG FROM ANOTHER DISCHARGE. KORI,RN, JOHN,RN, AND JORDAN,RN ALL IN PATIENT'S ROOM AND PATIENT HAS JUST PASSED. NO HERAT OR LUNG SOUNDS HEARD BY JAMAICA LOPEZ. STAFF TRYING TO COMFORT FAMILY MEMBERS. ALEX PUBLIC SPEAKING COACH GOING TO CALL DR. RAMOS. TISSUES AND HUGS GIVNE TO FAMILY. THIS RN REMAINING IN ROOM UNTIL DR. RAMOS ARRIVES.
--- NOTE | 2022-08-12 17:29 | NUR ---
CALL TO DR. RAMOS TO NOTIFY HIM THAT PATIENT AT 1722. TECHNICAL SALES MANAGER IS AWARE AND WORKING ON PACKET.
--- NOTE | 2022-08-12 17:35 | NUR ---
ARRIVES TO SEE PATIENT AND AND FAMILY AND CONDOLANCES GIVEN BY . PATIENT'S SON ARRIVES AND IS DISTRAUGHT. MORE TISSUES BROUGHT IN. AWAITNG ARRIVAL OF JENNIFER.
--- NOTE | 2022-08-12 17:45 | NUR ---
JENNIFER ENTERS ROOM TO TALK WITH FAMILY THIS RN NOW OUT OF THE ROOM DOING ROUNDS.
--- NOTE | 2022-08-12 18:05 | NUR ---
JENNIFER BACK INTO THE ROOM TO TALK WITH FAMILY.
--- NOTE | 2022-08-12 18:12 | NUR ---
Meet with Family after PT passed Prayed and offered comport Called Nedra Vaughan and help transport PT No valuables.
--- NOTE | 2022-08-12 18:24 | NUR ---
THIS RN BACK IN TO SEE IF FAMILY NEEDS ANYTHING. FAMILY APPRECIATIVE OF CONTACT, BUT DENY ANY NEEDS AT THIS TIME. ANOTHER VISITOR HAS ARRIVED. 22.7MG MS CLEARED FROM COMMUNICATION ENGINEER PUMP AND SYRINGE SENT WITH QA ENGINEER AND JAMAICA LOPEZ TO WASTE EARLIER WHEN PATIENT PASSED. STEPING OUT OF THE ROOM AT THIS TIME.
--- NOTE | 2022-08-12 18:29 | NUR ---
PASTORAL CARE AND DENT STATISTICAL TECHNICIAN IN THE ROOM WITH FAMILY NOW.
--- NOTE | 2022-08-12 18:58 | NUR ---
ALL IV LINES DC'D AND JARA REMOVED BY THIS RN AFTER FAMILY DEPARTED. JENNIFER AND DENT AUTOCAD ELECTRICAL DESIGNER HAVE LEFT NOW WITH THE PATIENT.
== END 2022-08-12 19:00 | DRG 698 ==
LOC: ED 06:35 → CCU 07:30 → MS 07:30
PROVIDERS: ADMIT Internal Medicine; ATTEND Family Medicine
PROC: 3E03329 Introduction of Other Anti-infective into Peripheral Vein, Percutaneous Approach (ICD-10-PCS; principal; 2022-08-11)
PROC: 3E033XZ Introduction of Vasopressor into Peripheral Vein, Percutaneous Approach (ICD-10-PCS; 2022-08-11)
PROC: 02HV33Z Insertion of Infusion Device into Superior Vena Cava, Percutaneous Approach (ICD-10-PCS; 2022-08-11)
DX: T83.511A Infection and inflammatory reaction due to indwelling urethral catheter, initial encounter (principal); R65.21 Severe sepsis with septic shock; A41.4 Sepsis due to anaerobes; G93.41 Metabolic encephalopathy; N39.0 Urinary tract infection, site not specified; Z20.822 Contact with and (suspected) exposure to COVID-19; Z51.5 Encounter for palliative care; Z66 Do not resuscitate; K21.9 Gastro-esophageal reflux disease without esophagitis; F32.A Depression, unspecified; E87.6 Hypokalemia; E83.42 Hypomagnesemia; B96.1 Klebsiella pneumoniae [K. pneumoniae] as the cause of diseases classified elsewhere; G47.33 Obstructive sleep apnea (adult) (pediatric); D69.59 Other secondary thrombocytopenia; I50.9 Heart failure, unspecified; I11.0 Hypertensive heart disease with heart failure; E11.9 Type 2 diabetes mellitus without complications; N40.0 Benign prostatic hyperplasia without lower urinary tract symptoms; F41.9 Anxiety disorder, unspecified; Z95.1 Presence of aortocoronary bypass graft; Z90.49 Acquired absence of other specified parts of digestive tract; Z87.891 Personal history of nicotine dependence; Z98.890 Other specified postprocedural states; Z88.8 Allergy status to other drugs, medicaments and biological substances; Z79.82 Long term (current) use of aspirin; Z79.899 Other long term (current) drug therapy; Y84.6 Urinary catheterization as the cause of abnormal reaction of the patient, or of later complication, without mention of misadventure at the time of the procedure
CPT/HCPCS: 36415; 36556; 51702; 71045; 80053; 81001; 83605; 83735; 85025; 87040; 87077; 87088; 87186; 87502; 93005; 93010; 99285-25; A9270; C9113; C9803; J0692; J2060; J2270; J3475; J3480; J7030; J7120; J7121; P9047; U0003